=== PATIENT | female | born 1980 | race Caucasian/White ===

== ENCOUNTER 2016-07-26 04:38 | Emergency (ER) | payer OTHER ==
[2016-07-26 04:46] VITALS: RESP 16; TEMP 98.2
[2016-07-26 05:49] LABS: Appearance,Urine Clear (Clear); Bilirubin,Urine Negative (Negative); Glucose,Urine (UA) Negative (Negative); Ketones,Urine Negative (Negative); Leukocyte Esterase,Urine Negative (Negative); Nitrite,Urine Negative (Negative); Protein,Urine Trace (Negative); Specific Gravity,Urine 1.029 (1.001-1.035); UA Billing (MACRO vs. MICRO) CHEM
[2016-07-26] MEDS ORDERED: DICYCLOMINE 10 MG CAP PO STA (05:55)
[2016-07-26 06:07] LABS: Basophils % (A) 0 %; CH 29.1; CHCM 34.8; Eosinophils # (A) 0.2 k/uL (0-0.7); Eosinophils % (A) 3 %; HCT 37.4 % (34.0-46.0); HDW 2.98; HGB 12.8 gm/dL (11.4-16.0); Luc # (Auto) 0.12; Luc % (Auto) 2; Lymphocytes # (A) 1.4 k/uL (1.0-4.8); Lymphocytes % (A) 21 %; MCH 28.9 pg (25.0-35.0); MCHC 34.3 g/dL (31.0-37.0); MCV 84.3 fL (80.0-100.0); Mean Platelet Volume 8.6; Monocytes # (A) 0.3 k/uL (0-1.0); Monocytes % (A) 4 %; Neutrophils # (A) 4.7 k/uL (1.3-7.7); Neutrophils % (A) 70 %; RBC 4.44 m/uL (3.80-5.40); RDW 13.8 % (11.5-15.5); WBC 6.7 k/uL (3.8-10.6)
[2016-07-26 06:20] LABS: ALT 38 U/L (9-52); AST 20 U/L (14-36); Alkaline Phosphatase 60 U/L (38-126); Amylase 50 U/L (30-110); Anion Gap 9 mmol/L; Blood Urea Nitrogen 17 mg/dL (7-17); Carbon Dioxide 26 mmol/L (22-30); Chloride 106 mmol/L (98-107); Glucose 130 mg/dL (74-99); Non-African American GFR(MDRD) >60 (>60 ml/min/1.73 sqM); Potassium 3.7 mmol/L (3.5-5.1); Sodium 141 mmol/L (137-145); Total Bilirubin 1.1 mg/dL (0.2-1.3); Total Protein 6.7 g/dL (6.3-8.2)
[2016-07-26 06:33] VITALS: BP 116/72; PULSE 70
--- NOTE | 2016-07-26 06:38 | CT ---
EXAM: CT Abdomen and Pelvis Without Intravenous Contrast CLINICAL HISTORY: Reason: abdominal pain TECHNIQUE: Axial computed tomography images of the abdomen and pelvis without intravenous contrast. CTDI is 12 mGy and DLP is 570 mGy-cm. This CT exam was performed using one or more of the following dose reduction techniques: automated exposure control, adjustment of the mA and/or kV according to patient size, and/or use of iterative reconstruction technique. Coronal and sagittal reformatted images were created and reviewed. COMPARISON: CT abdomen and pelvis 01/04/16 FINDINGS: Lower thorax: No acute findings. ABDOMEN: Liver: Unremarkable. Gallbladder and bile ducts: Cholecystectomy. No ductal dilation. Pancreas: Unremarkable. No ductal dilation. Spleen: Unremarkable. No splenomegaly. Adrenals: Unremarkable. No mass. Kidneys and ureters: Unremarkable. No obstructing stones. No hydronephrosis. Stomach and bowel: Unremarkable. No obstruction. No mucosal thickening. Appendix: Normal appendix. PELVIS: Bladder: Unremarkable. No stones. Reproductive: Tubal ligation clips in the pelvis. Slightly prominent retroverted uterus. ABDOMEN and PELVIS: Intraperitoneal space: Unremarkable. No free air. No significant fluid collection. Bones/joints: No acute fracture. No dislocation. Soft tissues: Small fat-containing umbilical hernia. Small fat- containing umbilical hernia. Vasculature: Unremarkable. No abdominal aortic aneurysm. Lymph nodes: Unremarkable. No enlarged lymph nodes. IMPRESSION: 1. No acute process. 2. Slightly prominent retroverted uterus with probable fibroid. 3. Normal appendix. 4. Cholecystectomy.
--- NOTE | 2016-07-26 06:52 | ED ---
Abdominal Pain HPI - General Chief Complaint: Abdominal Pain Stated Complaint: Abdominal and Back Pain Time Seen by Provider: 07/26/16 04:50 Source: patient Mode of arrival: ambulatory Limitations: no limitations - History of Present Illness Initial Comments: This patient is a 36-year-old woman who has complained of 2 types of pain. She states that she has been having some spasms to her low and mid back, but was more concerning is some abdominal pain in the right flank and also some periumbilical pains. The pain seems to be intermittent, moderate intensity, without worsening or relieving factors. She denies any associated symptoms. MD Complaint: abdominal pain -: hour(s) Location: periumbilical, RLQ, R flank Radiation: none Migration to: no migration Severity: moderate Quality: cramping, aching Consistency: colicky Improves With: nothing Worsens With: nothing Associated Symptoms: vomiting - Related Data Home Medications Medication Instructions Recorded Confirmed Loratadine [Claritin] 10 mg PO DAILY PRN 12/21/15 01/04/16 Albuterol Inhaler [Ventolin Hfa 1 - 2 puff INHALATION Q4-6H PRN 12/29/15 Inhaler] Fluticasone Nasal [place] [Flonase 2 spr EA NOSTRIL DAILY 12/29/15 01/04/16 Nasal [place]] Previous Rx's Medication Instructions Recorded Ibuprofen [Motrin] 800 mg PO Q6HR PRN #30 tab 12/21/15 HYDROcodone/APAP 5-325MG [[place] 1 tab PO Q4HR PRN #30 tab 12/31/15 5-325] Famotidine [Pepcid] 20 mg PO DAILY #14 tablet 07/26/16 Allergies Allergy/AdvReac Type Severity Reaction Status Date / Time codeine Allergy Unknown Verified 07/26/16 04:46 Childhood amoxicillin AdvReac yeast Verified 07/26/16 04:46 infection Review of Systems ROS Statement: Those systems with pertinent positive or pertinent negative responses have been documented in the HPI. ROS Other: All systems not noted in ROS Statement are negative. Constitutional: Denies: fever, chills Respiratory: Denies: cough, dyspnea Cardiovascular: Denies: chest pain, palpitations, edema, syncope Gastrointestinal: Reports: abdominal pain. Denies: nausea, vomiting, diarrhea, constipation, melena, hematochezia Genitourinary: Denies: dysuria, hematuria Musculoskeletal: Reports: back pain Skin: Denies: rash Neurological: Denies: headache, weakness, numbness Past Medical History Past Medical History: Hyperlipidemia Additional Past Medical History / Comment(s): UTI History of Any Multi-Drug Resistant Organisms: None Reported Past Surgical History: Section, Cholecystectomy, Tubal Ligation Additional Past Surgical History / Comment(s): c-sect x 2 Past Psychological History: Anxiety, Bipolar Smoking Status: Former smoker Past Alcohol Use History: Occasional Past Drug Use History: None Reported General Exam Limitations: no limitations General appearance: alert, in no apparent distress Head exam: Present: atraumatic, normocephalic Eye exam: Present: normal appearance. Absent: scleral icterus, conjunctival injection ENT exam: Present: normal oropharynx Neck exam: Present: normal inspection Respiratory exam: Present: normal lung sounds bilaterally. Absent: respiratory distress, wheezes, rales, rhonchi, stridor Cardiovascular Exam: Present: regular rate, normal rhythm, normal heart sounds. Absent: systolic murmur, diastolic murmur, rubs, gallop GI/Abdominal exam: Present: soft, normal bowel sounds. Absent: distended, tenderness, guarding, rebound, mass, pulsatile mass, hernia Extremities exam: Present: normal inspection, normal capillary refill. Absent: pedal edema, calf tenderness Back exam: Present: normal inspection. Absent: CVA tenderness (R), CVA tenderness (L) Neurological exam: Present: alert Skin exam: Present: warm, dry, intact, normal color. Absent: rash Course Vital Signs 07/26/16 07/26/16 04:43 06:32 Temperature 98.2 F Pulse Rate 81 70 Respiratory 16 16 Rate Blood Pressure 113/60 116/72 O2 Sat by Pulse 98 Oximetry Medical Decision Making - Medical Decision Making The patient did have significant relief with Bentyl. She has gone for the CT and it has been interpreted by myself and by the radiologist being negative for significant pathology. She is feeling better and would like to go home. Stressed appropriate follow-up and return parameters. - Lab Data Result diagrams: 07/26/16 05:55 07/26/16 05:55 Lab Results 07/26/16 07/26/16 07/26/16 Range/Units 04:46 04:46 05:55 WBC (3.8-10.6) k/uL RBC (3.80-5.40) m/uL Hgb (11.4-16.0) gm/dL Hct (34.0-46.0) % MCV (80.0-100.0) fL MCH (25.0-35.0) pg MCHC (31.0-37.0) g/dL RDW (11.5-15.5) % Plt Count (150-450) k/uL Neutrophils % % Lymphocytes % % Monocytes % % Eosinophils % % Basophils % % Neutrophils # (1.3-7.7) k/uL Lymphocytes # (1.0-4.8) k/uL Monocytes # (0-1.0) k/uL Eosinophils # (0-0.7) k/uL Basophils # (0-0.2) k/uL Sodium 141 (137-145) mmol/L Potassium 3.7 (3.5-5.1) mmol/L Chloride 106 (98-107) mmol/L Carbon Dioxide 26 (22-30) mmol/L Anion Gap 9 mmol/L BUN 17 (7-17) mg/dL Creatinine 0.60 (0.52-1.04) mg/dL Est GFR (MDRD) Af Amer >60 (>60 ml/min/1.73 sqM) Est GFR (MDRD) Non-Af >60 (>60 ml/min/1.73 sqM) Glucose 130 H (74-99) mg/dL Calcium 9.0 (8.4-10.2) mg/dL Total Bilirubin 1.1 (0.2-1.3) mg/dL AST 20 (14-36) U/L ALT 38 (9-52) U/L Alkaline Phosphatase 60 (38-126) U/L Total Protein 6.7 (6.3-8.2) g/dL Albumin 3.9 (3.5-5.0) g/dL Amylase 50 (30-110) U/L Lipase 94 (23-300) U/L Urine Color Yellow Urine Appearance Clear (Clear) Urine pH 7.0 (5.0-8.0) Ur Specific [place] 1.029 (1.001-1.035) Urine Protein Trace H (Negative) Urine Glucose (UA) Negative (Negative) Urine Ketones Negative (Negative) Urine Blood Negative (Negative) Urine Nitrite Negative (Negative) Urine Bilirubin Negative (Negative) Urine Urobilinogen 3.0 (<2.0) mg/dL Ur Leukocyte Esterase Negative (Negative) Urine HCG, Qual Not Detected (Not Detectd) 07/26/16 Range/Units 05:55 WBC 6.7 (3.8-10.6) k/uL RBC 4.44 (3.80-5.40) m/uL Hgb 12.8 (11.4-16.0) gm/dL Hct 37.4 (34.0-46.0) % MCV 84.3 (80.0-100.0) fL MCH 28.9 (25.0-35.0) pg MCHC 34.3 (31.0-37.0) g/dL RDW 13.8 (11.5-15.5) % Plt Count 189 (150-450) k/uL Neutrophils % 70 % Lymphocytes % 21 % Monocytes % 4 % Eosinophils % 3 % Basophils % 0 % Neutrophils # 4.7 (1.3-7.7) k/uL Lymphocytes # 1.4 (1.0-4.8) k/uL Monocytes # 0.3 (0-1.0) k/uL Eosinophils # 0.2 (0-0.7) k/uL Basophils # 0.0 (0-0.2) k/uL Sodium (137-145) mmol/L Potassium (3.5-5.1) mmol/L Chloride (98-107) mmol/L Carbon Dioxide (22-30) mmol/L Anion Gap mmol/L BUN (7-17) mg/dL Creatinine (0.52-1.04) mg/dL Est GFR (MDRD) Af Amer (>60 ml/min/1.73 sqM) Est GFR (MDRD) Non-Af (>60 ml/min/1.73 sqM) Glucose (74-99) mg/dL Calcium (8.4-10.2) mg/dL Total Bilirubin (0.2-1.3) mg/dL AST (14-36) U/L ALT (9-52) U/L Alkaline Phosphatase (38-126) U/L Total Protein (6.3-8.2) g/dL Albumin (3.5-5.0) g/dL Amylase (30-110) U/L Lipase (23-300) U/L Urine Color Urine Appearance (Clear) Urine pH (5.0-8.0) Ur Specific [place] (1.001-1.035) Urine Protein (Negative) Urine Glucose (UA) (Negative) Urine Ketones (Negative) Urine Blood (Negative) Urine Nitrite (Negative) Urine Bilirubin (Negative) Urine Urobilinogen (<2.0) mg/dL Ur Leukocyte Esterase (Negative) Urine HCG, Qual (Not Detectd) Disposition Clinical Impression: Abdominal pain Disposition: HOME SELF-CARE Condition: Fair Instructions: Abdominal Pain (ED) Prescriptions: Famotidine [Pepcid] 20 mg PO DAILY #14 tablet Referrals: Nonstaff,Physician [Primary Care Provider] - 1-2 days Lawson Hernandez MD [STAFF PHYSICIAN] - 1-2 days
== END 2016-07-26 06:58 | disposition home or self-care (01) ==
LOC: EC 04:38
DX: R10.9 Unspecified abdominal pain (principal); Z87.891 Personal history of nicotine dependence; Z88.5 Allergy status to narcotic agent; Z88.0 Allergy status to penicillin; Z79.51 Long term (current) use of inhaled steroids
CPT/HCPCS: 36415; 74176; 80053; 81003; 81025; 82150; 83690; 85025; 99284

== ENCOUNTER 2017-01-18 01:50 | Emergency (ER) | payer OTHER ==
[2017-01-18 01:58] VITALS: RESP 18
--- NOTE | 2017-01-18 02:13 | ED ---
General Adult HPI - General Chief complaint: ENT Stated complaint: ENT Time Seen by Provider: 01/18/17 02:07 Source: patient, RN notes reviewed Mode of arrival: ambulatory Limitations: no limitations - History of Present Illness Initial comments: 36-year-old female presents to the emergency Department chief complaint of sore throat. She states she's had a sore throat for the last 2 days or so. She has had of this. Patient denies a productive cough. Patient denies any nausea vomiting. Patient was concerned due to her continued sore throat so she thought that she should be evaluated. She denies any other symptoms with this. She denies any neck pain or headache. She states that she has had some bodyaches. Patient denies any recent shortness of breath, chest pain, back pain , abdominal pain, nausea vomiting, numbness or tingling, dysuria or hematuria, constipation or diarrhea, headaches or visual changes, or any other current symptoms. - Related Data Home Medications Medication Instructions Recorded Confirmed Loratadine [Claritin] 10 mg PO DAILY PRN 12/21/15 01/18/17 Ascorbic Acid [Vitamin C] 250 mg PO DAILY 01/18/17 01/18/17 Zinc 50 mg PO 01/18/17 Allergies Allergy/AdvReac Type Severity Reaction Status Date / Time codeine Allergy Unknown Verified 07/26/16 04:46 Childhood amoxicillin AdvReac yeast Verified 07/26/16 04:46 infection Review of Systems ROS Statement: Those systems with pertinent positive or pertinent negative responses have been documented in the HPI. ROS Other: All systems not noted in ROS Statement are negative. Past Medical History Past Medical History: Hyperlipidemia Additional Past Medical History / Comment(s): UTI History of Any Multi-Drug Resistant Organisms: None Reported Past Surgical History: Section, Cholecystectomy, Tubal Ligation Additional Past Surgical History / Comment(s): c-sect x 2 Past Psychological History: Anxiety, Bipolar Smoking Status: Former smoker Past Alcohol Use History: Rare Past Drug Use History: None Reported General Exam - General Exam Comments Initial Comments: General exam: Alert, active, comfortable in no apparent distress Head: Normocephalic Eyes: Normal reaction of pupils, equal size, normal range of extraocular motion Ears: normal external ear canals, pink tympanic membranes with normal cone of light Nose: clear with pink turbinates Throat: no erythema or exudates with normal sized tonsils Neck: no masses, no nuchal rigidity Chest: no chest wall deformity Lungs: equal air entry with no crackles or wheeze CVS: S1 and S2 normal with no audible mumurs, regular rhythm Abdomen: no hepatosplenomegaly, normal bowel sounds, no guarding or rigidity Spine: no scoliosis or deformity Skin: no rashes Neurological: No focal deficits, tone is normal in all 4 extremities Limitations: no limitations Course Vital Signs 01/18/17 01:53 Temperature 97.3 F L Pulse Rate 97 Respiratory 18 Rate Blood Pressure 119/60 O2 Sat by Pulse 98 Oximetry Medical Decision Making - Medical Decision Making 36-year-old female presents for sore throat. At this time patient is negative for testing. We discussed mostly the viral nature. We discussed Motrin Tylenol for symptoms. We discussed return parameters and follow-up. Patient stated that she understood all questions have been answered. This patient will be discharged home. - Lab Data Lab Results 01/18/17 01/18/17 Range/Units 02:20 02:20 Influenza Type A RNA Not Detected (Not Detectd) Influenza Type B (PCR) Not Detected (Not Detectd) Group A Strep Rapid Negative (Negative) Disposition Clinical Impression: Acute viral pharyngitis Disposition: HOME SELF-CARE Condition: Stable Instructions: Pharyngitis (ED) Additional Instructions: Please use medication as discussed. Please follow up with family doctor if symptoms have not improved over the next two days. Please return to the emergency room if your symptoms increase or worsen or for any other concerns. Referrals: Irina Orosco DO [REFERRING] - 1-2 days Time of Disposition: 02:56
[2017-01-18 03:27] VITALS: BP 142/80; PULSE 98; TEMP 98
== END 2017-01-18 03:25 | disposition home or self-care (01) ==
LOC: EC 01:50
DX: J02.9 Acute pharyngitis, unspecified (principal); Z87.891 Personal history of nicotine dependence; Z79.899 Other long term (current) drug therapy; Z88.5 Allergy status to narcotic agent; Z88.0 Allergy status to penicillin
CPT/HCPCS: 87081; 87430; 87502; 99283

== ENCOUNTER 2017-02-16 01:54 | Emergency (ER) | payer OTHER ==
[2017-02-16 02:01] VITALS: RESP 18
[2017-02-16] MEDS ORDERED: IBUPROFEN 600 MG TAB PO STA (02:17)
[2017-02-16 02:59] LABS: Appearance,Urine Cloudy (Clear); Bacteria,Urine Few /hpf; Bilirubin,Urine Negative (Negative); Glucose,Urine (UA) Negative (Negative); Ketones,Urine Negative (Negative); Leukocyte Esterase,Urine Moderate (Negative); Mucus,Urine Many /hpf; Nitrite,Urine Negative (Negative); Particle Count 10271; Protein,Urine Trace (Negative); RBC,Urine 8 /hpf (0-5); Specific Gravity,Urine 1.027 (1.001-1.035); Squamous Epithelial Cell,Urine 3 /hpf (0-4); UA Billing (MACRO vs. MICRO) MICRO; Urobilinogen,Urine <2.0 mg/dL (<2.0); WBC,Urine 22 /hpf (0-5)
--- NOTE | 2017-02-16 03:01 | ED ---
General Adult HPI - General Chief complaint: Upper Respiratory Infection Stated complaint: UTI/ENT Time Seen by Provider: 02/16/17 02:06 Source: patient Mode of arrival: ambulatory Limitations: no limitations - History of Present Illness Initial comments: 36-year-old female patient presents to the emergency department today with complaints of sore throat 1 month and urinary symptoms 4 days. Patient states that patient was seen here approximately one month ago for upper respiratory symptoms including sore throat. She states that all of her other symptoms have resolved however the sore throat has persisted. She states that she does have some sort of pain in the throat every single day. She states that nothing makes the pain better. She states that the pain is located more on the right than the left however both sides do bother her. She states that the throat feels swollen to her. She denies any fevers or chills with this. States that the pain does increase with swallowing. States that she does have ALLERGIES and postnasal drip. She states that she has had dysuria, frequency of urination, and urgency of urination for the last 3-4 days. States that she is having some mild lower back pain with this. She denies any nausea or vomiting. Again she denies any fevers or chills. Patient denies any recent rash , shortness breath, chest pain, abdominal pain, diarrhea, constipation, back pain, numbness, tingling, dizziness, weakness, hematuria, dysuria, urinary urgency, urinary frequency, headache, visual changes, or any other complaints. - Related Data Previous Rx's Medication Instructions Recorded Ciprofloxacin HCl [Cipro] 500 mg PO Q12HR #14 tablet 02/16/17 Allergies Allergy/AdvReac Type Severity Reaction Status Date / Time codeine Allergy Unknown Verified 07/26/16 04:46 Childhood amoxicillin AdvReac yeast Verified 07/26/16 04:46 infection Review of Systems ROS Statement: Those systems with pertinent positive or pertinent negative responses have been documented in the HPI. ROS Other: All systems not noted in ROS Statement are negative. Past Medical History Past Medical History: Hyperlipidemia Additional Past Medical History / Comment(s): UTI, gestational diabetes History of Any Multi-Drug Resistant Organisms: None Reported Past Surgical History: Section, Cholecystectomy, Tubal Ligation Additional Past Surgical History / Comment(s): c-sect x 2 Past Psychological History: Anxiety, Bipolar, Depression Smoking Status: Former smoker Past Alcohol Use History: Occasional Past Drug Use History: None Reported General Exam Limitations: no limitations General appearance: alert, in no apparent distress, other (Physical well- developed, well-nourished adult female patient in no acute distress. Vital signs upon presentation are temperature 97.7F, pulse 85, respirations 18, blood pressure 109/75, pulse ox 99% on room air.) Eye exam: Present: normal appearance, PERRL, EOMI. Absent: scleral icterus, conjunctival injection, periorbital swelling ENT exam: Present: normal exam, mucous membranes moist, TM's normal bilaterally , other (No tonsillar swelling or tonsillar exudate noted). Absent: normal oropharynx (Oropharyngeal erythema) Neck exam: Present: normal inspection. Absent: tenderness, meningismus, lymphadenopathy Respiratory exam: Present: normal lung sounds bilaterally. Absent: respiratory distress, wheezes, rales, rhonchi, stridor Cardiovascular Exam: Present: regular rate, normal rhythm, normal heart sounds. Absent: systolic murmur, diastolic murmur, rubs, gallop, clicks GI/Abdominal exam: Present: soft, normal bowel sounds. Absent: distended, tenderness, guarding, rebound, rigid Back exam: Present: normal inspection. Absent: CVA tenderness (R), CVA tenderness (L) Neurological exam: Present: alert, oriented X3, CN II-XII intact Psychiatric exam: Present: normal affect, normal mood Skin exam: Present: warm, dry, intact, normal color. Absent: rash Course Vital Signs 02/16/17 01:57 Temperature 97.7 F Pulse Rate 85 Respiratory 18 Rate Blood Pressure 109/75 O2 Sat by Pulse 99 Oximetry Medical Decision Making - Medical Decision Making 36-year-old female patient presented to the emergency department today for complaints of sore throat and urinary symptoms. Physical examination did reveal some oropharyngeal erythema however no evidence of tonsillar hypertrophy or exudate. No lymphadenopathy was noted. Tympanic membranes are normal. Abdomen was nontender, no CVA tenderness. Patient is afebrile, vital signs are stable. Urinalysis did show cloudy appearance with trace protein, moderate leukocyte esterase, 8 red blood cells, 22 white blood cells, few urine bacteria , many urine mucus. Urine hCG was negative. Heterophile was negative. Group A strep testing was negative. Patient will be discharged home with prescription for urinary tract infection. She is instructed to start taking [id number] antihistamines for postnasal drip and ALLERGIES. She is instructed to follow-up with her primary care physician for recheck in 1-2 days for instructed to return here immediately for any new, worsening, or concerning symptoms. She verbalizes understanding and agrees with this plan. - Lab Data Lab Results 02/16/17 02/16/17 02/16/17 Range/Units 02:24 02:24 02:24 Urine Color Yellow Urine Appearance Cloudy H (Clear) Urine pH 6.0 (5.0-8.0) Ur Specific [place] 1.027 (1.001-1.035) Urine Protein Trace H (Negative) Urine Glucose (UA) Negative (Negative) Urine Ketones Negative (Negative) Urine Blood Negative (Negative) Urine Nitrite Negative (Negative) Urine Bilirubin Negative (Negative) Urine Urobilinogen <2.0 (<2.0) mg/dL Ur Leukocyte Esterase Moderate H (Negative) Urine RBC 8 H (0-5) /hpf Urine WBC 22 H (0-5) /hpf Ur Squamous Epith Cells 3 (0-4) /hpf Urine Bacteria Few H (None) /hpf Urine Mucus Many H (None) /hpf Urine HCG, Qual Not Detected (Not Detectd) Heterophile Antibody Negative (Negative) Group A Strep Rapid (Negative) 02/16/17 Range/Units 02:24 Urine Color Urine Appearance (Clear) Urine pH (5.0-8.0) Ur Specific [place] (1.001-1.035) Urine Protein (Negative) Urine Glucose (UA) (Negative) Urine Ketones (Negative) Urine Blood (Negative) Urine Nitrite (Negative) Urine Bilirubin (Negative) Urine Urobilinogen (<2.0) mg/dL Ur Leukocyte Esterase (Negative) Urine RBC (0-5) /hpf Urine WBC (0-5) /hpf Ur Squamous Epith Cells (0-4) /hpf Urine Bacteria (None) /hpf Urine Mucus (None) /hpf Urine HCG, Qual (Not Detectd) Heterophile Antibody (Negative) Group A Strep Rapid Negative (Negative) Disposition Clinical Impression: Urinary tract infection, Sore throat Disposition: HOME SELF-CARE Condition: Good Instructions: Urinary Tract Infection in Women (ED), Pharyngitis (ED) Additional Instructions: Take medications as directed. Increase fluids. Follow-up with her primary care physician for recheck in 1-2 days. Take [id number] antihistamines like Claritin or Zyrtec daily. Return here immediately for any new, worsening, or concerning symptoms. Prescriptions: Ciprofloxacin HCl [Cipro] 500 mg PO Q12HR #14 tablet Referrals: Nonstaff,Physician [Primary Care Provider] - 1-2 days Time of Disposition: 03:30
[2017-02-16 03:55] VITALS: BP 113/56; PULSE 82; TEMP 98.2
== END 2017-02-16 03:55 | disposition home or self-care (01) ==
LOC: EC 01:54
DX: N39.0 Urinary tract infection, site not specified (principal); J02.9 Acute pharyngitis, unspecified; Z98.51 Tubal ligation status; Z98.890 Other specified postprocedural states; Z87.891 Personal history of nicotine dependence; Z32.02 Encounter for pregnancy test, result negative; Z88.0 Allergy status to penicillin; Z88.5 Allergy status to narcotic agent
CPT/HCPCS: 36415; 81001; 81025; 86308; 87081; 87086; 87430; 99283

== ENCOUNTER 2017-02-27 20:04 | Emergency (ER) | payer OTHER ==
[2017-02-27 20:59] VITALS: RESP 18
--- NOTE | 2017-02-27 23:41 | ED ---
General Adult HPI - General Chief complaint: Allergic Reaction Stated complaint: Anxiety Time Seen by Provider: 02/27/17 23:04 Source: patient Mode of arrival: ambulatory Limitations: no limitations - History of Present Illness Initial comments: This patient is a 36-year-old woman who believes that she is having an adverse reaction to a new medication she has started this afternoon. The patient states that she was seen and Dr. Matamoros's clinic today as a new patient. She started going to them for anxiety that she has been having. She states that she was started on Trintellix and lamictal for this problem. She states that in the past she was given a mood stabilizer that had helped with her symptoms, and that she had a prescription for Xanax to use as needed. She has not used Trintellix in the past. The patient took the medication around 4 and then she went to take a nap. She woke up feeling anxious and like her heart was racing around 7, as well as having anxiety. The patient states that she has been having a fair amount of stress which is been provoking the anxiety. She denies any suicidal or homicidal ideation, and does not feel that she needs to be hospitalized at this point. She states she has a history of very mild bipolar as well as the anxiety. Onset/Timin -: hour(s) Improves with: none Worsens with: medication Associated Symptoms: other (Anxiety) - Related Data Home Medications Medication Instructions Recorded Confirmed Naproxen Sodium [Aleve] 220 mg PO DAILY PRN 02/27/17 02/27/17 Vortioxetine Hydrobromide 10 mg PO DAILY 02/27/17 02/27/17 [Trintellix] lamoTRIgine [LaMICtal] 25 mg PO BID 02/27/17 02/27/17 Allergies Allergy/AdvReac Type Severity Reaction Status Date / Time codeine Allergy Unknown Verified 02/27/17 23:07 Childhood amoxicillin AdvReac yeast Verified 02/27/17 23:07 infection Review of Systems ROS Statement: Those systems with pertinent positive or pertinent negative responses have been documented in the HPI. ROS Other: All systems not noted in ROS Statement are negative. Constitutional: Denies: fever, chills, weakness Eyes: Denies: vision change Respiratory: Denies: cough, dyspnea, wheezes Cardiovascular: Reports: palpitations. Denies: chest pain, syncope Gastrointestinal: Reports: nausea. Denies: abdominal pain, vomiting, diarrhea Genitourinary: Denies: dysuria Musculoskeletal: Denies: back pain Skin: Denies: rash Neurological: Denies: headache, weakness, numbness, paresthesias, confusion Psychiatric: Reports: anxiety. Denies: depression, auditory hallucinations, visual hallucinations, homicidal thoughts, suicidal thoughts Past Medical History Past Medical History: Hyperlipidemia Additional Past Medical History / Comment(s): UTI, gestational diabetes, History of Any Multi-Drug Resistant Organisms: None Reported Past Surgical History: Section, Cholecystectomy, Tubal Ligation Additional Past Surgical History / Comment(s): c-sect x 2 Past Psychological History: Anxiety, Bipolar, Depression Smoking Status: Former smoker Past Alcohol Use History: Occasional Past Drug Use History: None Reported General Exam Limitations: no limitations General appearance: alert, in no apparent distress Head exam: Present: atraumatic, normocephalic Eye exam: Present: normal appearance. Absent: scleral icterus, conjunctival injection ENT exam: Present: normal oropharynx Neck exam: Present: normal inspection, full ROM. Absent: thyromegaly Respiratory exam: Present: normal lung sounds bilaterally. Absent: respiratory distress, wheezes, rales, rhonchi, stridor Cardiovascular Exam: Present: regular rate, normal rhythm, normal heart sounds. Absent: systolic murmur, diastolic murmur, rubs, gallop GI/Abdominal exam: Present: soft. Absent: distended, tenderness, guarding, rebound, rigid Neurological exam: Present: alert, oriented X3 Psychiatric exam: Present: normal affect, normal mood. Absent: depressed, agitated, anxious, manic, homicidal ideation, suicidal ideation Skin exam: Present: warm, dry, intact, normal color. Absent: rash Course Vital Signs 02/27/17 20:53 Temperature 98.1 F Pulse Rate 88 Respiratory 18 Rate Blood Pressure 117/71 O2 Sat by Pulse 98 Oximetry - Reevaluation(s) Reevaluation #1: 02/27/17 23:40 The patient states that her symptoms have abated somewhat while she was here. She states she has been reading a book and that seems to help with her symptoms. I discussed with her that she may need to stop taking the Trintellix , if she is experiencing a reaction like this after taking it. The literature search does reveal that anxiety can be provoked in some people taking this medication. Patient will follow-up with her physician to see about changing medications. Disposition Clinical Impression: Adverse reaction to drug Disposition: HOME SELF-CARE Condition: Good Instructions: Adverse Drug Reaction (ED) Referrals: Zach Matamoros MD [Primary Care Provider] - 1-2 days
[2017-02-27 23:49] VITALS: BP 117/70; PULSE 78; TEMP 98
== END 2017-02-27 23:49 | disposition home or self-care (01) ==
LOC: EC 20:04
DX: F41.9 Anxiety disorder, unspecified (principal); T43.295A Adverse effect of other antidepressants, initial encounter; F32.9 Major depressive disorder, single episode, unspecified; Z87.891 Personal history of nicotine dependence; Z79.899 Other long term (current) drug therapy; Z88.5 Allergy status to narcotic agent; Z88.0 Allergy status to penicillin
CPT/HCPCS: 99283

== ENCOUNTER → 2017-11-16 | Outpatient (CLI) | payer OTHER ==
--- NOTE | 2017-11-16 15:07 | XR ---
EXAMINATION TYPE: XR thoracic spine 2V DATE OF EXAM: 11/16/2017 COMPARISON: NONE HISTORY: 37-year-old female generalized back pain TECHNIQUE: 3 views FINDINGS: 12 rib bearing thoracic vertebral bodies. All pedicles are visualized. Mild endplate spondylosis mid thoracic spine with slight accentuated mid thoracic kyphosis. Vertebral body heights are preserved an d alignment is maintained. IMPRESSION: Mild endplate spondylosis and degenerative disc disease midthoracic spine. Slight accentuated mid tho racic kyphosis. No vertebral compression collapse or malalignment.
--- NOTE | 2017-11-16 16:25 | XR ---
EXAMINATION TYPE: XR lumbar spine 2 or 3V DATE OF EXAM: 11/16/2017 COMPARISON: NONE HISTORY: 37-year-old female low back pain TECHNIQUE: 3 views FINDINGS: 5 lumbar type vertebral bodies. Slight leftward truncal shift could be positional. Vertebral body hei ghts are preserved and alignment is maintained. Tubal ligation clips seen on the lateral view. IMPRESSION: Slight leftward truncal shift could be positional or due to muscle spasm. No vertebral compression co llapse or malalignment.
== END | disposition home or self-care (01) ==
LOC: RADXRMAIN 09:14
PROVIDERS: ATTEND Internal Medicine
DX: M51.34 Other intervertebral disc degeneration, thoracic region (principal); M54.5 Low back pain
CPT/HCPCS: 72070; 72100

== ENCOUNTER → 2018-01-26 | Outpatient (CLI) | payer OTHER ==
--- NOTE | 2018-01-26 15:46 | US ---
EXAMINATION TYPE: US pelvis complete transvag DATE OF EXAM: 01/26/2018 COMPARISON: CLINICAL HISTORY: R10.2 Pelvic and perineal pain. Patient states having hx of ovarian cyst. C-sectio ns. Tubal ligation. TECHNIQUE: Transvaginal (TV) and Transabdominal (TA) . Transabdominal sonographic images of the pel vis were acquired. Transvaginal sonographic images were medically necessary to better assess the fol lowing anatomy: Ovaries, endometrium Date of LMP: 01/04/2018, EXAM MEASUREMENTS: Uterus: 8.6 x 4.8 x 3.7 cm Endometrial Stripe: 0.6 cm Right Ovary: 2.7 x 1.5 x 1.3 cm Left Ovary: 3.2 x 2.2 x 2.2 cm 1. Uterus: Retroverted slightly heterogenous 2. Endometrium: Two possible cystic appearing lesion seen, 1- fundal region = 0.9 x 1.2 x 0.9 cm. 2- mid 0.4 x 0.3 x 0.3 cm 3. Right Ovary: Right ovary small follicles. 4. Left Ovary: The left ovary contains a 1.8 x 1.5 x 1.6 cm hypoechoic follicle with peripheral vasc ular flow. Spectral, color and waveform doppler imaging shows good arterial and venous flow within the ovaries ; there is no evidence for ovarian torsion. 5. Posterior cul-de-sac: Small volume free fluid. IMPRESSION: 1. Intraendometrial cystic lesions are seen with the larger measuring up to 1.2 cm. This is eccentric ally located. Correlation with serum beta hCG level is recommended to ensure this does not represent a pseudogestational sac of ectopic . Otherwise this is presumed to benign cystic lesion. 2. 1.8 cm probable involuting left ovarian follicle/cyst although again correlation with serum beta h CG is recommended to exclude ectopic given the above findings. 3. Small amount of free fluid within the pelvis. A [place] level critical message alert has been initiated for Oc Colón DO via the [employer] Critical Results System on 01/26/2018 3:43 PM. This message alert has been sent to Trista Niño via the preferences provided by the clinician for the receipt of Radiology Critical Findings. [employer] ID [id number].
[2018-01-26 16:24] LABS: T4, Free (Free Thyroxine) 0.83 ng/dL (0.78-2.19)
== END | disposition home or self-care (01) ==
LOC: RADUSWWP 14:59
PROVIDERS: ATTEND Obstetrics & Gynecology
DX: N85.8 Other specified noninflammatory disorders of uterus (principal); R10.2 Pelvic and perineal pain; Z13.29 Encounter for screening for other suspected endocrine disorder
CPT/HCPCS: 36415; 76830; 76856; 82670; 83001; 83002; 84146; 84439; 84443; 84479

== ENCOUNTER → 2018-01-27 | Outpatient (CLI) | payer OTHER | LOC: LABWHC1 11:33 | PROVIDERS: ATTEND Obstetrics & Gynecology | DX: R93.89 Abnormal findings on diagnostic imaging of other specified body structures (principal) | CPT/HCPCS: 36415; 84702 ==

== ENCOUNTER 2020-12-04 18:11 | Emergency (ER) | payer OTHER ==
[2020-12-04 19:14] LABS: Basophils % (A) 0 %; Eosinophils # (A) 0.2 k/uL (0-0.7); Eosinophils % (A) 2 %; Lymphocytes # (A) 1.6 k/uL (1.0-4.8); Lymphocytes % (A) 22 %; MCH 29.1 pg (25.0-35.0); MCHC 34.9 g/dL (31.0-37.0); MCV 83.3 fL (80.0-100.0); Monocytes # (A) 0.3 k/uL (0-1.0); Monocytes % (A) 4 %; Neutrophils # (A) 5.1 k/uL (1.3-7.7); Neutrophils % (A) 70 %; Platelet Count 225 k/uL (150-450); RBC 4.81 m/uL (3.80-5.40); RDW 13.3 % (11.5-15.5); WBC 7.3 k/uL (3.8-10.6)
[2020-12-04 19:22] LABS: HCG,Qualitative Serum Not Detected
[2020-12-04 19:23] LABS: ALT 23 U/L (4-34); AST 32 U/L (14-36); African American GFR (CKD) >90 (>60 ml/min/1.73 sqM); Albumin 4.5 g/dL (3.5-5.0); Alkaline Phosphatase 86 U/L (38-126); Amylase 57 U/L (30-110); Anion Gap 10 mmol/L; Blood Urea Nitrogen 10 mg/dL (7-17); Carbon Dioxide 24 mmol/L (22-30); Chloride 103 mmol/L (98-107); Glucose 101 mg/dL (74-99); Lipase 65 U/L (23-300); Non-African American GFR(CKD) >90 (>60 ml/min/1.73 sqM); Sodium 137 mmol/L (137-145); Total Bilirubin 1.6 mg/dL (0.2-1.3); Total Protein 7.8 g/dL (6.3-8.2)
[2020-12-04 19:31] LABS: INR 0.9 (<1.2); Partial Thromboplastin Time 25.1 sec (22.0-30.0); Prothrombin Time 10.2 sec (9.0-12.0)
[2020-12-04] MEDS ORDERED: ONDANSETRON 4 MG/2 ML VIAL IVP STA (19:32)
[2020-12-04] MEDS ORDERED: SODIUM CHLORIDE 0.9% 1,000 ML IV ONE (19:32)
[2020-12-04] MEDS ORDERED: FAMOTIDINE 20 MG/2 ML VIAL IV STA (19:32)
[2020-12-04] MEDS ORDERED: KETOROLAC 15 MG/ML 1 ML VIAL IVP STA (19:32)
[2020-12-04 20:08] LABS: Appearance,Urine Clear (Clear); Bilirubin,Urine Negative (Negative); Blood,Urine Negative (Negative); Color,Urine Light Yellow; Glucose,Urine (UA) Negative (Negative); Ketones,Urine Negative (Negative); Leukocyte Esterase,Urine Negative (Negative); Nitrite,Urine Negative (Negative); Protein,Urine Negative (Negative); Specific Gravity,Urine 1.003 (1.001-1.035); Urobilinogen,Urine <2.0 mg/dL (<2.0)
--- NOTE | 2020-12-04 20:41 | US ---
EXAMINATION TYPE: US liver DATE OF EXAM: 12/04/2020 COMPARISON: NONE CLINICAL HISTORY: RUQ pain, history of cholecystectomy, fatty liver. RUQ pain, cholecystectomy 2006 EXAM MEASUREMENTS: Liver Length: 14.3 cm Gallbladder Wall: Surgically absent CBD: 0.4 cm Right Kidney: 10.6 x 4.3 x 5.1 cm *Technical limitations due to large amount of overlying bowel content Pancreas: Obscured by bowel gas Liver: slightly attenuating Gallbladder: Surgically absent Evidence for sonographic Hudson's sign: no CBD: appears wnl as visualized Right Kidney: no evidence of hydronephrosis or mass IMPRESSION: There is cholecystectomy. No dilated ducts. No evidence of right renal obstruction.
--- NOTE | 2020-12-04 21:16 | ED ---
General Adult HPI - General Chief complaint: Abdominal Pain Stated complaint: Abd Pain Time Seen by Provider: 12/04/20 19:01 Source: patient, RN notes reviewed, old records reviewed Mode of arrival: ambulatory Limitations: no limitations - History of Present Illness Initial comments: Patient is a 40-year-old female with past medical history remarkable for chronic abdominal pain and history of cholecystectomy who presents emergency Department complaining of acute on chronic abdominal discomfort. She states it is over the right upper quadrant. She has had this pain previously and stated is likely secondary to noncompliance with her nonfatty diet. She endorses some nausea as well as worsening acid reflux but no emesis. Denies any diarrhea, constipation, change in bowel habits. Denies any urinary complaints, hematuria, dysuria. His no concern for STI's in denies any chance of being or vaginal bleeding at this time. She states she is without insurance and is presenting to the emergency department for follow-up for this pain. It has been worse over the last 3 days but it is a chronic issue. She has no other acute complaints at this time. She denies any fevers, chills, cough, chest pain, sick contacts. She has been tolerating by mouth intake over this period of time. - Related Data Home Medications Medication Instructions Recorded Confirmed Calcium Carbonate [Tums] 500 mg PO ACHS PRN 12/04/20 12/04/20 Fluticasone Nasal [place] [Flonase 1 spray EA NOSTRIL DAILY PRN 12/04/20 12/04/20 Nasal [place]] L.acidoph,Paracasei, B.lactis 1 cap PO DAILY 12/04/20 12/04/20 [Probiotic] Loratadine [Claritin] 10 mg PO DAILY PRN 12/04/20 12/04/20 Multivitamins, Thera [Multivitamin 1 tab PO DAILY 12/04/20 12/04/20 (formulary)] diphenhydrAMINE [Benadryl] 25 mg PO QID PRN 12/04/20 12/04/20 Previous Rx's Medication Instructions Recorded Famotidine [Pepcid] 20 mg PO DAILY 30 Days #30 tablet 12/04/20 Mag Hydrox/Al Hydrox/Simeth 30 ml PO BID #500 ml 12/04/20 [Maalox] Allergies Allergy/AdvReac Type Severity Reaction Status Date / Time codeine Allergy Unknown Verified 12/04/20 19:55 Childhood amoxicillin AdvReac yeast Verified 12/04/20 19:55 infection Review of Systems ROS Statement: Those systems with pertinent positive or pertinent negative responses have been documented in the HPI. Review of Systems: CONST: Denies fever EYES: Denies blurry vision ENT: Denies nasal congestion C/V: Denies Chest pain RESP: Denies shortness of breath GI: Endorses abdominal pain : Denies dysuria SKIN: Denies rash. MSK: Denies joint pain. NEURO: Denies headache ROS Other: All systems not noted in ROS Statement are negative. Past Medical History Past Medical History: Hyperlipidemia Additional Past Medical History / Comment(s): UTI, gestational diabetes, History of Any Multi-Drug Resistant Organisms: None Reported Past Surgical History: Section, Cholecystectomy, Tubal Ligation Additional Past Surgical History / Comment(s): c-sect x 2 Past Psychological History: Anxiety, Bipolar, Depression Smoking Status: Former smoker Past Alcohol Use History: None Reported Past Drug Use History: None Reported General Exam - General Exam Comments Initial Comments: General: Appears in mild discomfort secondary to abdominal pain. HEAD: Normal with no signs of head trauma. EYES: PERRLA, EOMI, conjunctiva normal, no discharge. ENT: Hearing grossly intact, normal oropharynx. RESPIRATORY: Clear breath sounds bilaterally. No wheezes, rales, or rhonchi. C/V: Slight tachycardia with a regular rhythm. S1 and S2 auscultated. No peripheral edema. Peripheral pulses are 2+ intact throughout. ABD: Abdomen soft, nondistended. Patient is mildly tender to palpation in the right upper quadrant and epigastric regions. No guarding. No peritoneal signs. No rebound tenderness. Exam unremarkable. EXT: Normal range of motion, no obvious deformity SKIN: No rashes or lesions observed on exposed skin. NEURO: Alert and oriented 4. Limitations: no limitations Course Vital Signs 12/04/20 12/04/20 18:13 21:36 Temperature 98.1 F 98.2 F Pulse Rate 110 H 74 Respiratory 18 20 Rate Blood Pressure 112/65 124/86 O2 Sat by Pulse 99 96 Oximetry Medical Decision Making - Medical Decision Making Based the patient's presentation and physical exam, I'm concerned for acute intra-abdominal process for current symptoms. Patient has a cholecystectomy, I cannot rule out her chronic fatty liver changes as possible cause. Acid reflux is also a possibility. Therefore we will obtain abdominal laboratory studies as well as urine laboratory studies. Ultrasound of the liver will also be obtained. Patiently symptomatically treated with IV Pepcid, Toradol, Zofran, fluid bolus. She was in agreement this plan. Laboratory studies are remarkable for normal CBC. Patient is slightly elevated total bilirubin of 1.6. LFTs are otherwise unremarkable. She is not . Urine studies are within normal limits. Patient's liver ultrasound showed signs of cholecystectomy without any acute process. On reevaluation come patient's abdominal discomfort is improved. I do believe it is safe for her to be discharged home with close follow-up. She was in agreement with this plan. Her pain is her typical chronic abdominal pain that she gets when she is not compliant with her typical low fat diet. I will provide the patient with a prescription for Maalox, famotidine. I instructed the patient to follow up with their PCP in the next 3 days. I provided contact information for follow up with Dr. Almonte, Dr. Cornejo. I ex plained that the patient should return to the emergency department if they experience any worsening symptoms. Strict return precautions were discussed with the patient. The patient expressed understanding of these instructions. I answered all questions that the patient had. The patient was discharged home in fair condition with their prescriptions and follow up information. - Lab Data Result diagrams: 12/04/20 19:04 12/04/20 19:04 Lab Results 12/04/20 12/04/20 12/04/20 Range/Units 19:04 19:04 19:04 WBC 7.3 (3.8-10.6) k/uL RBC 4.81 (3.80-5.40) m/uL Hgb 14.0 (11.4-16.0) gm/dL Hct 40.0 (34.0-46.0) % MCV 83.3 (80.0-100.0) fL MCH 29.1 (25.0-35.0) pg MCHC 34.9 (31.0-37.0) g/dL RDW 13.3 (11.5-15.5) % Plt Count 225 (150-450) k/uL MPV 9.0 Neutrophils % 70 % Lymphocytes % 22 % Monocytes % 4 % Eosinophils % 2 % Basophils % 0 % Neutrophils # 5.1 (1.3-7.7) k/uL Lymphocytes # 1.6 (1.0-4.8) k/uL Monocytes # 0.3 (0-1.0) k/uL Eosinophils # 0.2 (0-0.7) k/uL Basophils # 0.0 (0-0.2) k/uL PT 10.2 (9.0-12.0) sec INR 0.9 (<1.2) APTT 25.1 (22.0-30.0) sec Sodium (137-145) mmol/L Potassium (3.5-5.1) mmol/L Chloride (98-107) mmol/L Carbon Dioxide (22-30) mmol/L Anion Gap mmol/L BUN (7-17) mg/dL Creatinine (0.52-1.04) mg/dL Est GFR (CKD-EPI)AfAm (>60 ml/min/1.73 sqM) Est GFR (CKD-EPI)NonAf (>60 ml/min/1.73 sqM) Glucose (74-99) mg/dL Calcium (8.4-10.2) mg/dL Total Bilirubin (0.2-1.3) mg/dL AST (14-36) U/L ALT (4-34) U/L Alkaline Phosphatase (38-126) U/L Total Protein (6.3-8.2) g/dL Albumin (3.5-5.0) g/dL Amylase (30-110) U/L Lipase (23-300) U/L HCG, Qual Urine Color Light Yellow Urine Appearance Clear (Clear) Urine pH 6.0 (5.0-8.0) Ur Specific [place] 1.003 (1.001-1.035) Urine Protein Negative (Negative) Urine Glucose (UA) Negative (Negative) Urine Ketones Negative (Negative) Urine Blood Negative (Negative) Urine Nitrite Negative (Negative) Urine Bilirubin Negative (Negative) Urine Urobilinogen <2.0 (<2.0) mg/dL Ur Leukocyte Esterase Negative (Negative) 12/04/20 Range/Units 19:04 WBC (3.8-10.6) k/uL RBC (3.80-5.40) m/uL Hgb (11.4-16.0) gm/dL Hct (34.0-46.0) % MCV (80.0-100.0) fL MCH (25.0-35.0) pg MCHC (31.0-37.0) g/dL RDW (11.5-15.5) % Plt Count (150-450) k/uL MPV Neutrophils % % Lymphocytes % % Monocytes % % Eosinophils % % Basophils % % Neutrophils # (1.3-7.7) k/uL Lymphocytes # (1.0-4.8) k/uL Monocytes # (0-1.0) k/uL Eosinophils # (0-0.7) k/uL Basophils # (0-0.2) k/uL PT (9.0-12.0) sec INR (<1.2) APTT (22.0-30.0) sec Sodium 137 (137-145) mmol/L Potassium 4.0 (3.5-5.1) mmol/L Chloride 103 (98-107) mmol/L Carbon Dioxide 24 (22-30) mmol/L Anion Gap 10 mmol/L BUN 10 (7-17) mg/dL Creatinine 0.56 (0.52-1.04) mg/dL Est GFR (CKD-EPI)AfAm >90 (>60 ml/min/1.73 sqM) Est GFR (CKD-EPI)NonAf >90 (>60 ml/min/1.73 sqM) Glucose 101 H (74-99) mg/dL Calcium 10.0 (8.4-10.2) mg/dL Total Bilirubin 1.6 H (0.2-1.3) mg/dL AST 32 (14-36) U/L ALT 23 (4-34) U/L Alkaline Phosphatase 86 (38-126) U/L Total Protein 7.8 (6.3-8.2) g/dL Albumin 4.5 (3.5-5.0) g/dL Amylase 57 (30-110) U/L Lipase 65 (23-300) U/L HCG, Qual Not Detected Urine Color Urine Appearance (Clear) Urine pH (5.0-8.0) Ur Specific [place] (1.001-1.035) Urine Protein (Negative) Urine Glucose (UA) (Negative) Urine Ketones (Negative) Urine Blood (Negative) Urine Nitrite (Negative) Urine Bilirubin (Negative) Urine Urobilinogen (<2.0) mg/dL Ur Leukocyte Esterase (Negative) Disposition Clinical Impression: Abdominal pain of unknown etiology, Chronic abdominal pain Disposition: HOME SELF-CARE Condition: Fair Instructions (If sedation given, give patient instructions): Abdominal Pain (ED) Prescriptions: Mag Hydrox/Al Hydrox/Simeth [Maalox] 30 ml PO BID #500 ml Famotidine [Pepcid] 20 mg PO DAILY 30 Days #30 tablet Is patient prescribed a controlled substance at d/c from ED?: No Referrals: None,Stated [Primary Care Provider] - 1-2 days Christofer Cornejo MD [STAFF PHYSICIAN] - 1-2 days Vernóica Almonte MD [STAFF PHYSICIAN] - 1-2 days
[2020-12-04 21:37] VITALS: BP 124/86; PULSE 74; RESP 20; TEMP 98.2
== END 2020-12-04 21:37 | disposition home or self-care (01) ==
LOC: EC 18:11
DX: G89.29 Other chronic pain (principal); R10.11 Right upper quadrant pain; E78.5 Hyperlipidemia, unspecified; F31.9 Bipolar disorder, unspecified; Z87.891 Personal history of nicotine dependence; Z88.0 Allergy status to penicillin; Z88.5 Allergy status to narcotic agent; Z90.49 Acquired absence of other specified parts of digestive tract
CPT/HCPCS: 36415; 80053; 82150; 83690; 85025; 85610; 85730; 81003; 84703; 76705; 96374; 96375 ×2; 96361; 99284; J2405; J1885

== ENCOUNTER 2021-03-05 12:42 | Emergency (ER) | payer OTHER ==
[2021-03-05 12:50] VITALS: RESP 18; TEMP 98.6
--- NOTE | 2021-03-05 13:12 | ED ---
General Adult HPI - General Chief complaint: Chest Pain Stated complaint: Covid+, chest pain Time Seen by Provider: 03/05/21 13:00 Source: patient, RN notes reviewed, old records reviewed Mode of arrival: ambulatory Limitations: no limitations - History of Present Illness Initial comments: This is a well-appearing 40-year-old female, alert and oriented 4, presents to the emergency room with complaints of 3 days of cough and congestion. She tested positive for coronavirus on Monday and her uncle who is a physician prescribed her hydroxychloroquine, Medrol Dosepak, albuterol and a Z-Diony. She states that she continues to have congestion has been using Mucinex with some relief. She is concerned about the chest pain and lives alone with her 11 -year-old daughter. She describes the chest pain as 6 out of 10 and a heaviness. She is wants to make sure it is not her heart. She has a productive cough that is clearing color. She denies any diaphoresis nausea vomiting. She denies any other medical problems. She states she only takes vitamins on a daily basis. -: days(s) (3) Location: chest Radiation: non-radiation Severity scale (1-10): 6 Quality: other (heavy pressure) Consistency: constant Improves with: none Worsens with: none Associated Symptoms: cough, malaise, other (congestion) Treatments Prior to Arrival: other (Hydroxychloroquin, albuterol, Z-Diony, Medrol Dosepak) - Related Data Home Medications Medication Instructions Recorded Confirmed Calcium Carbonate [Tums] 500 mg PO ACHS PRN 12/04/20 12/04/20 Fluticasone Nasal [place] [Flonase 1 spray EA NOSTRIL DAILY PRN 12/04/20 12/04/20 Nasal [place]] L.acidoph,Paracasei, B.lactis 1 cap PO DAILY 12/04/20 12/04/20 [Probiotic] Loratadine [Claritin] 10 mg PO DAILY PRN 12/04/20 12/04/20 Multivitamins, Thera [Multivitamin 1 tab PO DAILY 12/04/20 12/04/20 (formulary)] diphenhydrAMINE [Benadryl] 25 mg PO QID PRN 12/04/20 12/04/20 Previous Rx's Medication Instructions Recorded Famotidine [Pepcid] 20 mg PO DAILY 30 Days #30 tablet 12/04/20 Mag Hydrox/Al Hydrox/Simeth 30 ml PO BID #500 ml 12/04/20 [Maalox] Allergies Allergy/AdvReac Type Severity Reaction Status Date / Time codeine Allergy Unknown Verified 03/05/21 12:50 Childhood amoxicillin AdvReac yeast Verified 03/05/21 12:50 infection Review of Systems ROS Statement: Those systems with pertinent positive or pertinent negative responses have been documented in the HPI. ROS Other: All systems not noted in ROS Statement are negative. Past Medical History Past Medical History: Hyperlipidemia Additional Past Medical History / Comment(s): UTI, gestational diabetes, History of Any Multi-Drug Resistant Organisms: None Reported Past Surgical History: Section, Cholecystectomy, Tubal Ligation Additional Past Surgical History / Comment(s): c-sect x 2 Past Psychological History: Anxiety, Bipolar, Depression Smoking Status: Former smoker Past Alcohol Use History: None Reported Past Drug Use History: None Reported General Exam Limitations: no limitations General appearance: alert, in no apparent distress Head exam: Present: atraumatic, normocephalic, normal inspection Eye exam: Present: normal appearance, EOMI. Absent: scleral icterus, conjunctival injection, periorbital swelling ENT exam: Present: normal exam, normal oropharynx, mucous membranes moist Neck exam: Present: normal inspection, full ROM. Absent: tenderness, meningismus, lymphadenopathy Respiratory exam: Present: normal lung sounds bilaterally. Absent: respiratory distress, wheezes, rales, rhonchi, stridor, chest wall tenderness, accessory mu scle use, decreased breath sounds, prolonged expiratory Cardiovascular Exam: Present: regular rate (Rate is 85), normal rhythm, normal heart sounds. Absent: systolic murmur, diastolic murmur, rubs, gallop, clicks Back exam: Present: normal inspection, full ROM. Absent: tenderness, CVA tenderness (R), CVA tenderness (L), rash noted Neurological exam: Present: alert, oriented X3 Psychiatric exam: Present: normal affect, normal mood Skin exam: Present: warm, dry, intact, normal color. Absent: rash, cyanosis, diaphoretic, erythema Course Vital Signs 03/05/21 03/05/21 12:47 15:58 Temperature 98.6 F Pulse Rate 1 L 73 Respiratory 18 18 Rate Blood Pressure 130/70 115/45 O2 Sat by Pulse 98 99 Oximetry EKG Findings - EKG Results: EKG: sinus rhythm (Ventricular rate of 85, FL interval 0.124, QRS 0.84, QTC 0.459) Medical Decision Making - Medical Decision Making Well-appearing 40-year-old female presents to the emergency room after being diagnosed with coronavirus. She states that her uncle put her on hydroxychloroquine, albuterol, Z-Diony and steroids. She states that she felt tightness in her chest has been using Mucinex with some relief. Chest x-ray is negative for infiltrate. EKG does not show any ST elevation. Her labs are within normal limits and patient does not seem to be any distress. She does not have any medical history concerning for ACS. Signs are stable. She will be directed to follow up with the primary care doctor return to the emergency with any new or worsening symptoms. Case discussed with Dr. Cazares. - Lab Data Result diagrams: 03/05/21 13:36 03/05/21 14:10 Lab Results 03/05/21 03/05/21 03/05/21 Range/Units 13:36 14:10 14:10 WBC 3.9 (3.8-10.6) k/uL RBC 4.86 (3.80-5.40) m/uL Hgb 13.9 (11.4-16.0) gm/dL Hct 40.8 (34.0-46.0) % MCV 83.9 (80.0-100.0) fL MCH 28.7 (25.0-35.0) pg MCHC 34.2 (31.0-37.0) g/dL RDW 12.9 (11.5-15.5) % Plt Count 191 (150-450) k/uL MPV 9.7 Neutrophils % 71 % Lymphocytes % 17 % Monocytes % 8 % Eosinophils % 2 % Basophils % 0 % Neutrophils # 2.8 (1.3-7.7) k/uL Lymphocytes # 0.7 L (1.0-4.8) k/uL Monocytes # 0.3 (0-1.0) k/uL Eosinophils # 0.1 (0-0.7) k/uL Basophils # 0.0 (0-0.2) k/uL PT (9.0-12.0) sec INR (<1.2) APTT (22.0-30.0) sec D-Dimer (<0.60) mg/L FEU Sodium 141 (137-145) mmol/L Potassium 4.4 (3.5-5.1) mmol/L Chloride 107 (98-107) mmol/L Carbon Dioxide 24 (22-30) mmol/L Anion Gap 10 mmol/L BUN 10 (7-17) mg/dL Creatinine 0.62 (0.52-1.04) mg/dL Est GFR (CKD-EPI)AfAm >90 (>60 ml/min/1.73 sqM) Est GFR (CKD-EPI)NonAf >90 (>60 ml/min/1.73 sqM) Glucose 96 (74-99) mg/dL Calcium 10.3 H (8.4-10.2) mg/dL Magnesium 2.0 (1.6-2.3) mg/dL Total Bilirubin 0.7 (0.2-1.3) mg/dL AST 30 (14-36) U/L ALT 26 (4-34) U/L Alkaline Phosphatase 76 (38-126) U/L Troponin I <0.012 (0.000-0.034) ng/mL Total Protein 8.2 (6.3-8.2) g/dL Albumin 4.7 (3.5-5.0) g/dL 03/05/21 Range/Units 14:10 WBC (3.8-10.6) k/uL RBC (3.80-5.40) m/uL Hgb (11.4-16.0) gm/dL Hct (34.0-46.0) % MCV (80.0-100.0) fL MCH (25.0-35.0) pg MCHC (31.0-37.0) g/dL RDW (11.5-15.5) % Plt Count (150-450) k/uL MPV Neutrophils % % Lymphocytes % % Monocytes % % Eosinophils % % Basophils % % Neutrophils # (1.3-7.7) k/uL Lymphocytes # (1.0-4.8) k/uL Monocytes # (0-1.0) k/uL Eosinophils # (0-0.7) k/uL Basophils # (0-0.2) k/uL PT 10.2 (9.0-12.0) sec INR 0.9 (<1.2) APTT 22.3 (22.0-30.0) sec D-Dimer 0.48 (<0.60) mg/L FEU Sodium (137-145) mmol/L Potassium (3.5-5.1) mmol/L Chloride (98-107) mmol/L Carbon Dioxide (22-30) mmol/L Anion Gap mmol/L BUN (7-17) mg/dL Creatinine (0.52-1.04) mg/dL Est GFR (CKD-EPI)AfAm (>60 ml/min/1.73 sqM) Est GFR (CKD-EPI)NonAf (>60 ml/min/1.73 sqM) Glucose (74-99) mg/dL Calcium (8.4-10.2) mg/dL Magnesium (1.6-2.3) mg/dL Total Bilirubin (0.2-1.3) mg/dL AST (14-36) U/L ALT (4-34) U/L Alkaline Phosphatase (38-126) U/L Troponin I (0.000-0.034) ng/mL Total Protein (6.3-8.2) g/dL Albumin (3.5-5.0) g/dL Disposition Clinical Impression: Chest pain Disposition: HOME SELF-CARE Condition: Good Instructions (If sedation given, give patient instructions): Chest Pain (ED) Additional Instructions: Continue medications as previously prescribed by your doctor. Return to the emergency room with any new or concerning symptoms. Follow-up with your doctor next week. Is patient prescribed a controlled substance at d/c from ED?: No Referrals: None,Stated [Primary Care Provider] - 1-2 days Time of Disposition: 15:54
[2021-03-05 13:45] LABS: Basophils % (A) 0 %; Eosinophils # (A) 0.1 k/uL (0-0.7); Eosinophils % (A) 2 %; HCT 40.8 % (34.0-46.0); HGB 13.9 gm/dL (11.4-16.0); Lymphocytes # (A) 0.7 k/uL (1.0-4.8); Lymphocytes % (A) 17 %; MCH 28.7 pg (25.0-35.0); MCHC 34.2 g/dL (31.0-37.0); MCV 83.9 fL (80.0-100.0); Mean Platelet Volume 9.7; Monocytes # (A) 0.3 k/uL (0-1.0); Monocytes % (A) 8 %; Neutrophils # (A) 2.8 k/uL (1.3-7.7); Neutrophils % (A) 71 %; Platelet Count 191 k/uL (150-450); RBC 4.86 m/uL (3.80-5.40); RDW 12.9 % (11.5-15.5); WBC 3.9 k/uL (3.8-10.6)
--- NOTE | 2021-03-05 14:18 | XR ---
EXAMINATION TYPE: XR chest 2V DATE OF EXAM: 03/05/2021 COMPARISON: 01/04/2016 INDICATION: Chest pain and cough congestion TECHNIQUE: Frontal and lateral views of the chest are obtained. FINDINGS: The heart size is normal. The pulmonary vasculature is normal. The lungs are clear. IMPRESSION: 1. No acute pulmonary process.
[2021-03-05 14:46] LABS: ALT 26 U/L (4-34); AST 30 U/L (14-36); African American GFR (CKD) >90 (>60 ml/min/1.73 sqM); Albumin 4.7 g/dL (3.5-5.0); Alkaline Phosphatase 76 U/L (38-126); Anion Gap 10 mmol/L; Blood Urea Nitrogen 10 mg/dL (7-17); Calcium 10.3 mg/dL (8.4-10.2); Carbon Dioxide 24 mmol/L (22-30); Chloride 107 mmol/L (98-107); Glucose 96 mg/dL (74-99); Non-African American GFR(CKD) >90 (>60 ml/min/1.73 sqM); Potassium 4.4 mmol/L (3.5-5.1); Sodium 141 mmol/L (137-145); Total Bilirubin 0.7 mg/dL (0.2-1.3); Total Protein 8.2 g/dL (6.3-8.2)
[2021-03-05 14:58] LABS: INR 0.9 (<1.2); Partial Thromboplastin Time 22.3 sec (22.0-30.0); Prothrombin Time 10.2 sec (9.0-12.0)
[2021-03-05 16:03] VITALS: BP 115/45; PULSE 73
== END 2021-03-05 17:02 | disposition home or self-care (01) ==
LOC: EC 12:42
DX: R07.89 Other chest pain (principal); Z88.5 Allergy status to narcotic agent; Z88.0 Allergy status to penicillin; Z87.891 Personal history of nicotine dependence
CPT/HCPCS: 36415; 71046; 80053; 83735; 84484; 85025; 85379; 85610; 85730; 93005; 99285

== ENCOUNTER 2023-02-28 16:50 | Observation (INO) | payer OTHER ==
--- NOTE | 2023-02-28 17:38 | XR ---
EXAMINATION TYPE: XR chest 2V DATE OF EXAM: 02/28/2023 5:26 PM CLINICAL INDICATION:Female, 42 years old with history of Chest Pain; [facility] COMPARISON: Chest radiographs from 03/05/2021. TECHNIQUE: XR chest 2V Frontal and lateral views of the chest. FINDINGS: Lungs/Pleura: There is no evidence of pleural effusion, focal consolidation, or pneumothorax. Pulmonary vascularity: Unremarkable. Heart/mediastinum: Cardiomediastinal silhouette is unremarkable. Musculoskeletal: No acute osseous pathology. Other findings: None IMPRESSION: No acute cardiopulmonary disease/process.
[2023-02-28 17:47] LABS: Basophils % (A) 0 %; Eosinophils # (A) 0.2 k/uL (0-0.7); Eosinophils % (A) 2 %; HCT 38.2 % (34.0-46.0); HGB 13.6 gm/dL (11.4-16.0); Lymphocytes # (A) 1.6 k/uL (1.0-4.8); Lymphocytes % (A) 22 %; MCH 29.6 pg (25.0-35.0); MCHC 35.6 g/dL (31.0-37.0); MCV 83.1 fL (80.0-100.0); Mean Platelet Volume 9.4; Monocytes # (A) 0.3 k/uL (0-1.0); Monocytes % (A) 4 %; Neutrophils # (A) 4.9 k/uL (1.3-7.7); Neutrophils % (A) 70 %; Platelet Count 171 k/uL (150-450); RDW 13.2 % (11.5-15.5)
[2023-02-28] MEDS ORDERED: ASPIRIN 81 MG PO STA (17:47)
[2023-02-28] MEDS ORDERED: NITROGLYCERIN OINT 1 INCH/GM PACKET TOPICAL STA (17:47)
[2023-02-28 17:48] LABS: Appearance,Urine Clear (Clear); Bilirubin,Urine Negative (Negative); Blood,Urine Negative (Negative); Color,Urine Colorless; Glucose,Urine (UA) Negative (Negative); Ketones,Urine Negative (Negative); Leukocyte Esterase,Urine Negative (Negative); Nitrite,Urine Negative (Negative); Protein,Urine Negative (Negative); Specific Gravity,Urine 1.005 (1.001-1.035); Urobilinogen,Urine <2.0 mg/dL (<2.0)
[2023-02-28 17:57] LABS: INR 0.9 (<1.2); Partial Thromboplastin Time 25.9 sec (22.0-30.0); Prothrombin Time 10.3 sec (10.0-12.5)
--- NOTE | 2023-02-28 18:19 | ED ---
General Adult HPI - General Chief complaint: Chest Pain Stated complaint: Chest Pain,Sob Time Seen by Provider: 02/28/23 17:00 Source: patient, family, RN notes reviewed, old records reviewed Limitations: no limitations - History of Present Illness Initial comments: This is a 42-year-old female with past medical history significant for high cholesterol. She states she just started taking Lipitor. Patient comes in today because at 1:30 this afternoon she started having chest heaviness made her short of breath and she was nauseous with it. Patient states she still has a ch est pressure but it's not as bad as it was earlier. Patient denies any fever chills or cough per patient denies abdominal pain patient denies vomiting or diarrhea. Patient denies any calf tenderness or leg swelling. Patient denies lightheadedness or dizziness. - Related Data Home Medications Medication Instructions Recorded Confirmed Fluticasone Nasal [place] [Flonase 1 spray EA NOSTRIL DAILY PRN 12/04/20 02/28/23 Nasal [place]] Loratadine [Claritin] 10 mg PO DAILY PRN 12/04/20 02/28/23 Atorvastatin [Lipitor] 20 mg PO DIRECTED 02/28/23 02/28/23 Allergies Allergy/AdvReac Type Severity Reaction Status Date / Time amoxicillin AdvReac yeast Verified 02/28/23 17:23 infection codeine AdvReac Nausea/rest Verified 02/28/23 17:23 less Review of Systems ROS Statement: Those systems with pertinent positive or pertinent negative responses have been documented in the HPI. ROS Other: All systems not noted in ROS Statement are negative. Past Medical History Past Medical History: Hyperlipidemia Additional Past Medical History / Comment(s): UTI, gestational diabetes, History of Any Multi-Drug Resistant Organisms: None Reported Past Surgical History: Section, Cholecystectomy, Tubal Ligation Additional Past Surgical History / Comment(s): c-sect x 2 Past Psychological History: Anxiety, Bipolar, Depression Smoking Status: Former smoker Past Alcohol Use History: None Reported Past Drug Use History: None Reported General Exam - General Exam Comments Initial Comments: GENERAL: Patient is well-developed and well-nourished. Patient is nontoxic and well- hydrated and is in mild distress. ENT: Neck is soft and supple. No significant lymphadenopathy is noted. Oropharynx is clear. Moist mucous membranes. Neck has full range of motion without eliciting any pain. EYES: The sclera were anicteric and conjunctiva were pink and moist. Extraocular movements were intact and pupils were equal round and reactive to light. Eyelids were unremarkable. PULMONARY: Unlabored respirations. Good breath sounds bilaterally. No audible rales rhonchi or wheezing was noted. CARDIOVASCULAR: There is a regular rate and rhythm without any murmurs gallops or rubs. ABDOMEN: Soft and nontender with normal bowel sounds. SKIN: Skin is clear with no lesions or rashes and otherwise unremarkable. NEUROLOGIC: Patient is alert and oriented x3. Cranial nerves II through XII are grossly intact. Motor and sensory are also intact. Normal speech, volume and content. Symmetrical smile. MUSCULOSKELETAL: Normal extremities with adequate strength and full range of motion. No lower extremity swelling or edema. No calf tenderness. LYMPHATICS: No significant lymphadenopathy is noted PSYCHIATRIC: Normal psychiatric evaluation. Limitations: no limitations Course Vital Signs 02/28/23 16:53 Temperature 97.3 F L Pulse Rate 85 Respiratory 16 Rate Blood Pressure 112/67 O2 Sat by Pulse 98 Oximetry Medical Decision Making - Medical Decision Making EKG is interpreted by myself. EKG shows a sinus rhythm at 75 bpm DC interval 133 QRS 94 Q-T intervals 452 QTC is 434. Patient's EKG shows no ST segment elevation or depression. Was pt. sent in by a medical professional or institution (JEANNETTE Matthews, MEDIA MARKETING COORDINATOR, urgent care, hospital, or senior care...) When possible be specific @ -No Did you speak to anyone other than the patient for history (EMS, parent, family, police, friend...)? What history was obtained from this source @ -No Did you review nursing and triage notes (agree or disagree)? Why? @ -I reviewed and agree with nursing and triage notes Were old charts reviewed (outside hosp., previous admission, EMS record, old EKG, old radiological studies, urgent care reports/EKG's, senior care records)? Report findings @ -I reviewed prior charts from prior lab work on this patient Differential Diagnosis (chest pain, altered mental status, abdominal pain women, abdominal pain men, vaginal bleeding, weakness, fever, dyspnea, syncope, headache, dizziness, GI bleed, back pain, seizure, CVA, palpatations, mental health, musculoskeletal)? @ -Differential Chest Pain: Stable Angina, Unstable Angina, STEMI, NSTEMI Aortic Dissection, Pneumothorax, Musculoskeletal, Esophageal Spasm GERD, Cholecystitis, Pancreatitis, Zoster, this is not meant to be an all-inclusive list. EKG interpreted by me (3pts min.). @ -As above X-rays interpreted by me (1pt min.). @ -Chest x-ray showed no acute abnormality CT interpreted by me (1pt min.). @ -None done U/S interpreted by me (1pt. min.). @ -None done What testing was considered but not performed or refused? (CT, X-rays, U/S, labs)? Why? @ -None What meds were considered but not given or refused? Why? @ -None Did you discuss the management of the patient with other professionals (professionals i.e. , PA, MEDIA MARKETING COORDINATOR, lab, RT, psych nurse, director social welfare, animal stunner, teacher, chief environmental commitment officer, adult protective caseworker)? Give summary @ -I spoke with the [facility] hospitalist and they agreed to admit the patient Was smoking cessation discussed for >3mins.? @ -No Was critical care preformed (if so, how long)? @ -No Were there social determinants of health that impacted care today? How? (Homelessness, low income, unemployed, alcoholism, drug addiction, transportation, low edu. Level, literacy, decrease access to med. care, assisted, rehab)? @ -No Was there de-escalation of care discussed even if they declined (Discuss DNR or withdrawal of care, Hospice)? DNR status @ -No What co-morbidities impacted this encounter? (DM, HTN, Smoking, COPD, CAD, Cancer, CVA, ARF, Chemo, Hep., AIDS, mental health diagnosis, sleep apnea, morbid obesity)? @ -None Was patient admitted / discharged? Hospital course, mention meds given and route, prescriptions, significant lab abnormalities, going to OR and other pertinent info. @ -Patient's lab work BACK within normal range. Patient was given aspirin and Nitropaste. Patient states when she got the Nitropaste within a few minutes she started feeling better and eventually the pain was completely resolved. Patient is currently pain-free. I spoke with the [facility] nonspecific agreed to admit the patient admitted the patient wrote admitting orders Undiagnosed new problem with uncertain prognosis? @ -No Drug Therapy requiring intensive monitoring for toxicity (Heparin, Nitro, Insulin, Cardizem)? @ -No Were any procedures done? @ -No Diagnosis/symptom? @ -Chest pain Acute, or Chronic, or Acute on Chronic? @ -Acute Uncomplicated (without systemic symptoms) or Complicated (systemic symptoms)? @ -Complicated Side effects of treatment? @ -No Exacerbation, Progression, or Severe Exacerbation? @ -No Poses a threat to life or bodily function? How? (Chest pain, [place], PR, pneumonia, PE, COPD, DKA, ARF, appy, cholecystitis, CVA, Diverticulitis, Homicidal, Suicidal, threat to staff... and all critical care pts) @ -Yes patient could be having a precursor to an PR and this could cause further morbidity or mortality - Lab Data Result diagrams: 02/28/23 17:33 02/28/23 17:33 Lab Results 02/28/23 02/28/23 02/28/23 Range/Units 17:33 17:33 17:33 WBC 7.0 (3.8-10.6) k/uL RBC 4.60 (3.80-5.40) m/uL Hgb 13.6 (11.4-16.0) gm/dL Hct 38.2 (34.0-46.0) % MCV 83.1 (80.0-100.0) fL MCH 29.6 (25.0-35.0) pg MCHC 35.6 (31.0-37.0) g/dL RDW 13.2 (11.5-15.5) % Plt Count 171 (150-450) k/uL MPV 9.4 Neutrophils % 70 % Lymphocytes % 22 % Monocytes % 4 % Eosinophils % 2 % Basophils % 0 % Neutrophils # 4.9 (1.3-7.7) k/uL Lymphocytes # 1.6 (1.0-4.8) k/uL Monocytes # 0.3 (0-1.0) k/uL Eosinophils # 0.2 (0-0.7) k/uL Basophils # 0.0 (0-0.2) k/uL PT 10.3 (10.0-12.5) sec INR 0.9 (<1.2) APTT 25.9 (22.0-30.0) sec Sodium (137-145) mmol/L Potassium (3.5-5.1) mmol/L Chloride (98-107) mmol/L Carbon Dioxide (22-30) mmol/L Anion Gap mmol/L BUN (7-17) mg/dL Creatinine (0.52-1.04) mg/dL Est GFR (CKD-EPI)AfAm (>60 ml/min/1.73 sqM) Est GFR (CKD-EPI)NonAf (>60 ml/min/1.73 sqM) Glucose (74-99) mg/dL Calcium (8.4-10.2) mg/dL Magnesium (1.6-2.3) mg/dL Total Bilirubin (0.2-1.3) mg/dL AST (14-36) U/L ALT (4-34) U/L Alkaline Phosphatase (38-126) U/L Troponin I (0.000-0.034) ng/mL Total Protein (6.3-8.2) g/dL Albumin (3.5-5.0) g/dL Urine Color Colorless Urine Appearance Clear (Clear) Urine pH 6.0 (5.0-8.0) Ur Specific [place] 1.005 (1.001-1.035) Urine Protein Negative (Negative) Urine Glucose (UA) Negative (Negative) Urine Ketones Negative (Negative) Urine Blood Negative (Negative) Urine Nitrite Negative (Negative) Urine Bilirubin Negative (Negative) Urine Urobilinogen <2.0 (<2.0) mg/dL Ur Leukocyte Esterase Negative (Negative) Urine HCG, Qual (Not Detectd) 02/28/23 02/28/23 02/28/23 Range/Units 17:33 17:33 17:33 WBC (3.8-10.6) k/uL RBC (3.80-5.40) m/uL Hgb (11.4-16.0) gm/dL Hct (34.0-46.0) % MCV (80.0-100.0) fL MCH (25.0-35.0) pg MCHC (31.0-37.0) g/dL RDW (11.5-15.5) % Plt Count (150-450) k/uL MPV Neutrophils % % Lymphocytes % % Monocytes % % Eosinophils % % Basophils % % Neutrophils # (1.3-7.7) k/uL Lymphocytes # (1.0-4.8) k/uL Monocytes # (0-1.0) k/uL Eosinophils # (0-0.7) k/uL Basophils # (0-0.2) k/uL PT (10.0-12.5) sec INR (<1.2) APTT (22.0-30.0) sec Sodium 140 (137-145) mmol/L Potassium 3.8 (3.5-5.1) mmol/L Chloride 106 (98-107) mmol/L Carbon Dioxide 23 (22-30) mmol/L Anion Gap 11 mmol/L BUN 9 (7-17) mg/dL Creatinine 0.60 (0.52-1.04) mg/dL Est GFR (CKD-EPI)AfAm >90 (>60 ml/min/1.73 sqM) Est GFR (CKD-EPI)NonAf >90 (>60 ml/min/1.73 sqM) Glucose 90 (74-99) mg/dL Calcium 9.2 (8.4-10.2) mg/dL Magnesium 2.0 (1.6-2.3) mg/dL Total Bilirubin 1.2 (0.2-1.3) mg/dL AST 28 (14-36) U/L ALT 30 (4-34) U/L Alkaline Phosphatase 78 (38-126) U/L Troponin I <0.012 (0.000-0.034) ng/mL Total Protein 7.3 (6.3-8.2) g/dL Albumin 4.3 (3.5-5.0) g/dL Urine Color Urine Appearance (Clear) Urine pH (5.0-8.0) Ur Specific [place] (1.001-1.035) Urine Protein (Negative) Urine Glucose (UA) (Negative) Urine Ketones (Negative) Urine Blood (Negative) Urine Nitrite (Negative) Urine Bilirubin (Negative) Urine Urobilinogen (<2.0) mg/dL Ur Leukocyte Esterase (Negative) Urine HCG, Qual Not Detected (Not Detectd) Disposition Clinical Impression: Chest pain Disposition: ADMITTED IP TO THIS [facility] Referrals: None,Stated [REFERRING] - 1-2 days Time of Disposition: 19:08
[2023-02-28 18:31] LABS: Albumin 4.3 g/dL (3.5-5.0); Glucose 90 mg/dL (74-99); Total Protein 7.3 g/dL (6.3-8.2)
[2023-02-28 18:32] LABS: ALT 30 U/L (4-34); AST 28 U/L (14-36); African American GFR (CKD) >90 (>60 ml/min/1.73 sqM); Alkaline Phosphatase 78 U/L (38-126); Anion Gap 11 mmol/L; Blood Urea Nitrogen 9 mg/dL (7-17); Calcium 9.2 mg/dL (8.4-10.2); Carbon Dioxide 23 mmol/L (22-30); Chloride 106 mmol/L (98-107); Non-African American GFR(CKD) >90 (>60 ml/min/1.73 sqM); Potassium 3.8 mmol/L (3.5-5.1); Sodium 140 mmol/L (137-145); Total Bilirubin 1.2 mg/dL (0.2-1.3)
[2023-02-28] MEDS ORDERED: NITROGLYCERIN SL TABS 0.4 MG TAB SUBLINGUAL PRN (19:09)
[2023-02-28] MEDS ORDERED: FLUTICASONE 50MCG/SPRAY NASAL 16GM EA NOSTRIL PRN (21:00)
[2023-02-28] MEDS: ACETAMINOPHEN TAB 325 MG TAB PO PRN (21:19)
[2023-02-28] MEDS: ATORVASTATIN 20 MG TAB PO SCH (21:19)
[2023-02-28] MEDS: ONDANSETRON 4 MG/2 ML VIAL IVP PRN (21:19)
[2023-02-28 22:58] VITALS: RESP 16
[2023-03-01] MEDS: NITROGLYCERIN OINT 1 INCH/GM PACKET TOPICAL SCH ×2 (01:00→05:37)
[2023-03-01] MEDS: ACETAMINOPHEN TAB 325 MG TAB PO PRN (04:39)
[2023-03-01] MEDS: ONDANSETRON 4 MG/2 ML VIAL IVP PRN (04:39)
[2023-03-01 04:47] VITALS: TEMP 98.3
[2023-03-01] MEDS ORDERED: FLUTICASONE 50MCG/SPRAY NASAL 16GM EA NOSTRIL SCH (09:00)
[2023-03-01] MEDS ORDERED: ASPIRIN 81 MG PO SCH (09:00)
[2023-03-01] MEDS ORDERED: LORATADINE 10 MG TAB PO PRN (09:00)
[2023-03-01] MEDS ORDERED: LORATADINE 10 MG TAB PO SCH (09:00)
[2023-03-01] MEDS ORDERED: ASPIRIN 325 MG TAB PO SCH (09:00)
--- NOTE | 2023-03-01 11:13 | P.CRDCN ---
History of Present Illness History of present illness: HISTORY OF PRESENT ILLNESS: This is a 42-year-old female with a past medical history significant for hyperlipidemia. Patient does not follow with a advisor consultant. We have been asked to see the patient in consultation for chest pain. Patient examined at the bedside. Patient presented to the hospital yesterday after having chest pain that lasted most of the day yesterday. She states the pain was intermittent and would come and go. She states the pain did not seem to be exertionally related. She states that the pain radiated to her left shoulder and she also felt a stabbing sensation under her left breast. She states the pain was relieved with Nitropaste. She denies any chest pain or pressure at the time of examination. She denies any shortness of breath. She states that she is adopted and does not know much of her biological family history. She states that she has never had any previous stress testing. * EKG reveals sinus mechanism with no signs of acute ischemia * Chest xray negative for acute process * Laboratory data: Troponin negative 3 * Current home cardiac medications include atorvastatin 20 mg at night REVIEW OF SYSTEMS: At the time of my exam: CONSTITUTIONAL: Denies fever or chills. HEENT: Denies blurred vision, vision changes, or eye pain. Denies hemoptysis CARDIOVASCULAR: Denies chest pain. Denies orthopnea. Denies PND. Denies palpitations RESPIRATORY: Denies shortness of breath. GASTROINTESTINAL: Denies abdominal pain. Denies nausea or vomiting. HEMATOLOGIC: Denies bleeding disorders. GENITOURINARY: Denies any blood in urine. SKIN: Denies pruitis. Denies rash. PHYSICAL EXAM: VITAL SIGNS: Reviewed. GENERAL: Well-developed in no acute distress. HEENT: Head is normocephalic. Pupils are equal, round. Sclerae anicteric. Mucous membranes of the mouth are moist. Neck supple. No JVD or thyromegaly LUNGS: Respirations even and unlabored. Lungs essentially clear to auscultation bilaterally. HEART: Regular rate and rhythm. S1 and S2 heard. ABDOMEN: Soft. Nondistended. Nontender. EXTREMITIES: Normal range of motion. No clubbing or cyanosis. Peripheral pulses intact. No lower extremity edema NEUROLOGIC: Awake and alert. Oriented x 3. ASSESSMENT: Chest pain, troponins negative 3 Hyperlipidemia Anxiety Depression Bipolar disorder PLAN: An acute coronary event has been ruled out Continue home cardiac medications Obtain 2-D echo to assess cardiac structure and function Patient to undergo stress echocardiogram today If negative, she may be discharged home from a cardiac standpoint Nurse practitioner note has been reviewed by physician. Signing provider agrees with the documented findings, assessment, and plan of care. Past Medical History Past Medical History: Hyperlipidemia Additional Past Medical History / Comment(s): gestational diabetes History of Any Multi-Drug Resistant Organisms: None Reported Past Surgical History: Section, Cholecystectomy, Tubal Ligation Additional Past Surgical History / Comment(s): c-sect x 2 Past Anesthesia/Blood Transfusion Reactions: No Reported Reaction Past Psychological History: Anxiety, Bipolar, Depression Smoking Status: Former smoker Past Alcohol Use History: None Reported Past Drug Use History: None Reported Medications and Allergies Home Medications Medication Instructions Recorded Confirmed Type Fluticasone Nasal [place] [Flonase 1 spray EA NOSTRIL DAILY PRN 12/04/20 02/28/23 History Nasal [place]] Loratadine [Claritin] 10 mg PO DAILY PRN 12/04/20 02/28/23 History Atorvastatin [Lipitor] 20 mg PO DIRECTED 02/28/23 02/28/23 History Allergies Allergy/AdvReac Type Severity Reaction Status Date / Time amoxicillin AdvReac yeast Verified 02/28/23 17:23 infection codeine AdvReac Nausea/rest Verified 02/28/23 17:23 less Physical Exam Vitals: Vital Signs Temp Pulse Pulse Resp BP BP Pulse Ox 03/01/23 04:00 98.3 F 69 16 96/57 99 03/01/23 00:00 71 16 107/51 98 02/28/23 21:00 98.0 F 72 16 104/56 97 02/28/23 19:55 96 18 117/71 96 02/28/23 16:53 97.3 F L 85 16 112/67 98 Intake and Output 02/28/23 03/01/23 03/01/23 22:59 06:59 14:59 Intake Total 10 Balance 10 Intake: IV 10 Invasive Line 1 10 Other: Voiding Method Toilet Toilet # Voids 1 Weight 81.647 kg Results 02/28/23 17:33 02/28/23 17:33 Cardiac Enzymes 02/28/23 02/28/23 02/28/23 Range/Units 17:33 17:33 19:28 AST 28 (14-36) U/L Troponin I <0.012 <0.012 (0.000-0.034) ng/mL 02/28/23 Range/Units 22:16 AST (14-36) U/L Troponin I <0.012 (0.000-0.034) ng/mL Coagulation 02/28/23 Range/Units 17:33 PT 10.3 (10.0-12.5) sec APTT 25.9 (22.0-30.0) sec CBC 02/28/23 Range/Units 17:33 WBC 7.0 (3.8-10.6) k/uL RBC 4.60 (3.80-5.40) m/uL Hgb 13.6 (11.4-16.0) gm/dL Hct 38.2 (34.0-46.0) % Plt Count 171 (150-450) k/uL Comprehensive Metabolic Panel 02/28/23 Range/Units 17:33 Sodium 140 (137-145) mmol/L Potassium 3.8 (3.5-5.1) mmol/L Chloride 106 (98-107) mmol/L Carbon Dioxide 23 (22-30) mmol/L BUN 9 (7-17) mg/dL Creatinine 0.60 (0.52-1.04) mg/dL Glucose 90 (74-99) mg/dL Calcium 9.2 (8.4-10.2) mg/dL AST 28 (14-36) U/L ALT 30 (4-34) U/L Alkaline Phosphatase 78 (38-126) U/L Total Protein 7.3 (6.3-8.2) g/dL Albumin 4.3 (3.5-5.0) g/dL Current Medications Generic Name Dose Route Start Last Admin Trade Name Freq PRN Reason Stop Dose Admin Acetaminophen 650 mg 02/28/23 21:02 03/01/23 04:39 Acetaminophen Tab 325 Mg Tab PO 650 mg Q6HR PRN Administration Fever and/ or Pain Aspirin 325 mg 03/01/23 09:00 Aspirin 325 Mg Tab PO DAILY NIKKI Atorvastatin Calcium 20 mg 02/28/23 21:00 02/28/23 21:19 Atorvastatin 20 Mg Tab PO 20 mg DAILY NIKKI Administration Fluticasone Propionate 1 spray 03/01/23 09:00 Fluticasone 50mcg/[place] Nasal 16gm EA NOSTRIL DAILY [facility] Loratadine 10 mg 03/01/23 09:00 Loratadine 10 Mg Tab PO DAILY [facility] Nitroglycerin 0.4 mg 02/28/23 19:09 Nitroglycerin Sl Tabs 0.4 Mg Tab SUBLINGUAL Q5M PRN Chest Pain Nitroglycerin 1 inch 03/01/23 00:00 03/01/23 05:37 Nitroglycerin Oint 1 Inch/Gm Packet TOPICAL Not Given Q6HR [facility] Ondansetron HCl 4 mg 02/28/23 21:02 03/01/23 04:39 Ondansetron 4 Mg/2 Ml Vial IVP 4 mg Q6HR PRN Administration Nausea And Vomiting Intake and Output 02/28/23 03/01/23 03/01/23 22:59 06:59 14:59 Intake Total 10 Balance 10 Intake: IV 10 Invasive Line 1 10 Other: Voiding Method Toilet Toilet # Voids 1 Weight 81.647 kg 02/28/23 17:33 02/28/23 17:33
--- NOTE | 2023-03-01 12:18 | CA ---
Stress Echo Report Jennifer Campbell Age: 42 Gender: F : 1980 Exam Date: 03/01/2023 11:34 Exam Location: [facility] Ht (in): 63 Wt (lb): 180 Ordering Physician: Crystal Grissom Referring Physician: [id number] User Interface Artist: TEODORA, Technologist Procedure CPT: Indication: CP ICD-9 Codes: Rhythm: Patient History: Chest pain, short of breath and palpitations Cardiac Medications: Medications in past 24 hours: Contrast: Stress Results Protocol: Guzman Total dose(mL): Exercise Duration (min:sec): [address] Depression (mm): Angina Score: Rivas Score: METS: 11.7 Resting HR: 69 Resting BP: 109 / 55 Peak HR: 168 Peak BP: 191 / 127 Max Predicted HR: 180 93 % Max Predicted HR Target HR: 153 Double Product: [id number] Stress Summary: BP Response: Reason for Termination: Reached target heart rate or work-load Cardiac Symptoms: No Symptoms ECG Analysis Resting ECG: Normal sinus rhythm normal axis normal intervals Stress ECG: Patient exercised on Guzman protocol for 10 minutes achieving 85% of predicted maximal heart rate without chest pain or diagnostic ST segment depression Arrhythmia: Echo Analysis Resting Echo: Normal left ventricular size wall motion systolic function normal l Peak Echo Analysis: Normal hyperdynamic response of all the segments of myocardium noted MEASUREMENTS (Male/Female) Normal Values CONCLUSIONS Excellent exercise tolerance Negative stress test by EKG criteria Negative stress echo Dr. Chau Almonte MD (Electronically Signed) Final Date: 01 March 2023 12:17
[2023-03-01] MEDS: ATORVASTATIN 20 MG TAB PO SCH (12:25)
[2023-03-01 12:39] VITALS: BP 115/59; PULSE 81
[2023-03-01 15:23] LABS: Chol/HDL Ratio 3.93 Ratio; LDL Cholesterol,Calculated 94.5 mg/dL (0.0-131.0); VLDL Calculation 15.12 mg/dL (5.00-40.00)
--- NOTE | 2023-03-01 17:17 | CA ---
Transthoracic Echo Report Name: Jennifer Campbell Age: 42 Gender: F : 1980 Exam Date: 03/01/2023 11:52 Exam Location: [facility] Ht (in): 63 Wt (lb): 180 Ordering Physician: Crystal Grissom Attending/Referring Phys: [id number], Praveena [employer] Customer Service Representative Paula Doss RDCS Procedure CPT: Indications: LV function Cardiac Hx: Technical Quality: Good Contrast 1: Total Dose (mL): Contrast 2: Total Dose (mL): MEASUREMENTS (Male / Female) Normal Values 2D ECHO LV Diastolic Diameter PLAX 4.8 cm 4.2 - 5.9 / 3.9 - 5.3 cm LV Systolic Diameter PLAX 3.0 cm IVS Diastolic Thickness 0.9 cm 0.6 - 1.0 / 0.6 - 0.9 cm LVPW Diastolic Thickness 1.0 cm 0.6 - 1.0 / 0.6 - 0.9 cm LV Relative Wall Thickness 0.4 RV Internal Dim ED PLAX 3.0 cm LA Systolic Diameter LX 3.7 cm 3.0 - 4.0 / 2.7 - 3.8 cm LV Diastolic Volume MOD 4C 64.1 cm??? LV Systolic Volume MOD 4C 24.1 cm??? LV Ejection Fraction MOD 4C 62.4 % LV Cardiac Index MOD 4C 1818.8 cm???/min???m??? LV Diastolic Length 4C 7.5 cm LV Systolic Length 4C 5.5 cm LV Diastolic Volume MOD 2C 70.2 cm??? LV Systolic Volume MOD 2C 27.1 cm??? LV Ejection Fraction MOD 2C 61.5 % LV Cardiac Index MOD 2C 1960.8 cm???/min???m??? LV Diastolic Length 2C 7.4 cm LV Systolic Length 2C 5.6 cm LA Volume 44.6 cm??? 18 - 58 / 22 - 52 cm??? LA Volume Index 23.1 cm???/m??? 16 - 28 cm???/m??? M-MODE Aortic Root Diameter MM 2.9 cm MV E Point Septal Separation 0.4 cm AV Cusp Separation MM 2.1 cm DOPPLER AV Peak Velocity 116.3 cm/s AV Peak Gradient 5.4 mmHg MV Area PHT 4.0 cm??? Mitral E Point Velocity 95.0 cm/s Mitral A Point Velocity 66.4 cm/s Mitral E to A Ratio 1.4 MV Deceleration Time 190.4 ms MV E' Velocity 11.3 cm/s Mitral E to MV E' Ratio 8.4 TR Peak Velocity 220.4 cm/s TR Peak Gradient 19.4 mmHg Right Ventricular Systolic Press 24.3 mmHg FINDINGS Left Ventricle Left ventricular ejection fraction is estimated at 60-65 %. Left ventricular cavity size normal. Left ventricular wall thickness at upper limits of normal. Right Ventricle Normal right ventricular size. Right ventricular systolic pressure within normal limits. Right Atrium Normal right atrial size. Left Atrium Normal left atrial size. Mitral Valve Structurally normal mitral valve. No mitral stenosis, regurgitation or prolapse. Aortic Valve Trileaflet aortic valve. No aortic valve stenosis or regurgitation. Tricuspid Valve Structurally normal tricuspid valve. Mild tricuspid regurgitation. Pulmonic Valve Structurally normal pulmonic valve. No pulmonic regurgitation. Pericardium No pericardial effusion. Aorta Normal size aortic root and proximal ascending aorta. CONCLUSIONS Normal LV systolic function Previewed by: Dr. Chau Almonte MD (Electronically Signed) Final Date: 01 March 2023 17:16
--- NOTE | 2023-03-01 19:35 | HP ---
HISTORY AND PHYSICAL This is a combined history and physical and discharge summary. CHIEF COMPLAINT: Chest pain. HISTORY OF PRESENT ILLNESS: This is a 42-year-old woman with a past medical history of hypercholesterolemia, was admitted with chest pain, which was felt in the anterior part of the chest. Myocardial infarction ruled out. D-dimer was negative. Cardiology performed a stress echo, which was read as negative. The patient will be discharged in a stable condition and guarded prognosis. There is no history of any fever, rigors, or chills. The patient is following up in the [facility]. PAST MEDICAL HISTORY: Hypercholesterolemia. Rest of the history and the chart is also reviewed. HOME MEDICATIONS: Reviewed include Lipitor, dose and rest of medications reviewed. ALLERGIES: Codeine. FAMILY HISTORY: The patient is adopted. Some family history of coronary artery disease in the maternal side. SOCIAL HISTORY: No history of smoking, or alcohol. REVIEW OF SYSTEMS: A 14-point review is negative except as mentioned earlier. PHYSICAL EXAMINATION: VITAL SIGNS: Pulse is 81, blood pressure 115/59, respirations 16. HEENT: Conjunctivae normal. NECK: No jugular venous distention. CARDIOVASCULAR: S1, S2. RESPIRATIONS: Breath sounds diminished at the bases. ABDOMEN: Soft. LEGS: No edema. NERVOUS SYSTEM: Nonfocal. SKIN: No ulcer, rash, bleeding. JOINTS: No active deforming arthropathy. LABORATORY DATA: Reviewed, within normal limits. ASSESSMENT: 1. Chest pain, possibly musculoskeletal with negative stress test. 2. Hyperlipidemia. 3. Gestational diabetes mellitus type 2. 4. Anxiety, bipolar depression. RECOMMENDATIONS AND DISCUSSION: This is a 42-year-old woman admitted with chest pain, underwent a stress test, which was normal. Cardiology recommended outpatient aspirin. I would recommend to follow up closely with Cardiology and Primary Physician at [facility] and resume the home medications. Please refer to the medication reconciliation sheet for list of medications. MMODL / IJN: [id number] /
--- NOTE | 2023-03-03 06:40 | P.DS ---
Providers Date of admission: 02/28/23 19:10 Expected date of discharge: 03/01/23 Attending physician: Christofer Cornejo Consults: 02/28/23 19:09 Consult Physician Urgent Consulting Provider: [facility] Consult Reason/Comments: Chest pain Do you want consulting provider notified?: Yes Primary care physician: [facility] Course: Final diagnosis Chest pain, ruled out ACS, possibly musculoskeletal with negative stress test hyperlipidemia History of gestational diabetes anxiety, bipolar, depression Obesity with a BMI of 31.9+ GI prophylaxis DVT prophylaxis Full code Discharge disposition Patient is being discharged in a stable condition with guarded prognosis to home . Patient will follow-up with the [facility] in the outpatient setting upon discharge. Patient is to continue with daily aspirin and outpatient follow-up with cardiology as scheduled. Total time taken is greater than 35 minutes. Hospital course This is a 42-year-old female who was recently admitted with chest pain with negative troponins and evaluated by cardiology recommending stress test with echo. Stress test was done which was negative and echo within normal limits with an EF of 55-60%. Patient was started on baby aspirin and instructed to follow-up with primary care provider as well as cardiology in the outpatient setting. Patient has been cleared by cardiology for discharge home today. Please refer to cardiology notes for further HPI. Currently no reports of chest pain, shortness of breath, or palpitations. Patient is afebrile. No reports of nausea or vomiting and patient is tolerating diet. Patient will be discharged home today. Physical exam: Gen: This is a 42-year-old female who is awake, alert and oriented 3, well-developed, well-nourished, obese HEENT: Head is atraumatic, normocephalic. Pupils equal, round. Sclerae is anicteric. NECK: Supple. No JVD. No lymphadenopathy. No thyromegaly. LUNGS: Clear to auscultation. No wheezes or rhonchi. No intercostal retractions. HEART: Regular rate and rhythm. No murmur. ABDOMEN: Soft. Bowel sounds are present. No masses. No tenderness. EXTREMITIES: No pedal edema. No calf tenderness. NEUROLOGICAL: Patient is awake, alert and oriented x3. Cranial nerves 2 through 12 are grossly intact. Please refer to medication reconciliation sheet for a list of medications. The impression and plan of care has been dictated by Taya Ferguson, Nurse Practitioner as directed. Dr. Clemente MD I have performed a history and examination and MDM of this patient, discussed the same with the dictator, and agree with the dictator's assessment and plan as written ,documented as a scribe. Based on total visit time, I have performed more than 50% of the visit. Patient Condition at Discharge: Stable Plan - Discharge Summary Discharge Rx Participant: Yes New Discharge Prescriptions: New Aspirin 81 mg PO DAILY #30 tab Acetaminophen Tab [Tylenol] 650 mg PO Q6HR PRN tab PRN Reason: Fever And/ Or Pain Continue Loratadine [Claritin] 10 mg PO DAILY PRN PRN Reason: Allergy Symptoms Atorvastatin [Lipitor] 20 mg PO DIRECTED Fluticasone Nasal [place] [Flonase Nasal [place]] 1 spray EA NOSTRIL DAILY PRN PRN Reason: Allergy Symptoms Discharge Medication List Fluticasone Nasal [place] [Flonase Nasal [place]] 1 spray EA NOSTRIL DAILY PRN 12/04/20 [History] Loratadine [Claritin] 10 mg PO DAILY PRN 12/04/20 [History] Atorvastatin [Lipitor] 20 mg PO DIRECTED 02/28/23 [History] Acetaminophen Tab [Tylenol] 650 mg PO Q6HR PRN tab 03/01/23 [Rx] Aspirin 81 mg PO DAILY #30 tab 03/01/23 [Rx] Follow up Appointment(s)/Referral(s): [facility] [[facility]] - 1 Week Activity/Diet/Wound Care/Special Instructions: Activity Limited until follow-up follow-up with primary care provider on discharge follow-up cardiology outpatient in 1-2 weeks and continue taking medications as prescribed Discharge Disposition: HOME SELF-CARE
== END 2023-03-01 15:36 | disposition home or self-care (01) ==
LOC: EC 16:50 → 3SCARD 19:10 → INTOOBSV 19:10 → 3SCARD 20:03
PROVIDERS: ADMIT Hospitalist; ATTEND Hospitalist
DX: R07.89 Other chest pain (principal); E78.5 Hyperlipidemia, unspecified; F41.9 Anxiety disorder, unspecified; F31.9 Bipolar disorder, unspecified; E66.9 Obesity, unspecified; Z68.31 Body mass index [BMI] 31.0-31.9, adult; Z79.899 Other long term (current) drug therapy; Z88.0 Allergy status to penicillin; Z88.5 Allergy status to narcotic agent
CPT/HCPCS: 96376; 96374; 99285; 36415; 93005; 93306; 93351; 85379; 80061; 80053; 83735; 84484; 85025; 85610; 85730; 81003; 81025; 71046; G0378 ×2; J2405 ×2